=== PATIENT | male | born 1945 | race Caucasian/White ===

== ENCOUNTER 2021-03-16 18:41 | Emergency (ER) | payer OTHER ==
[~2021-03-16] VITALS: Ht 180.3 cm; Wt 92.1 kg
[2021-03-16 19:05] LABS: BASOPHILS ABSOLUTE AUTO 0.03 K/mm3 (0.00-0.23); BASOPHILS PERCENT AUTO 0 % (0-2); EOSINOPHILS ABSOLUTE AUTO 0.08 K/mm3 (0.00-0.68); EOSINOPHILS PERCENT AUTO 1 % (0-6); Hematocrit 34.6 % (37.0-53.0); Hemoglobin 11.6 g/dL (13.5-17.5); IMMATURE GRAN ABSOLUTE AUTO 0.02 K/mm3 (0.00-0.10); IMMATURE GRAN PERCENT AUTO 0 % (0-1); LYMPHOCYTES ABSOLUTE AUTO 2.25 K/mm3 (0.84-5.20); LYMPHOCYTES PERCENT AUTO 30 % (21-46); MONOCYTES ABSOLUTE AUTO 0.63 K/mm3 (0.16-1.47); MONOCYTES PERCENT AUTO 9 % (4-13); Mean Corpuscular HGB 30.9 pg (26.0-34.0); Mean Corpuscular HGB Conc 33.5 g/dL (31.5-36.5); Mean Corpuscular Volume 92 fL (80-100); Mean Platelet Volume 9.2 fL (9.1-12.4); NEUTROPHILS ABSOLUTE AUTO 4.39 K/mm3 (1.96-9.15); NEUTROPHILS PERCENT AUTO 59 % (41-73); Platelet Count 297 K/mm3 (150-400); RDW Coefficient Variation 12.2 % (11.7-14.2); RDW Standard Deviation 41.2 fL (35.1-46.3); Red Blood Cell Count 3.75 M/mm3 (4.30-5.90)
[2021-03-16] MEDS ORDERED: ALOGLIPTIN6.25 M1 PO (19:06)
[2021-03-16] MEDS ORDERED: THERA-D2000 UNIT PO (19:06)
[2021-03-16] MEDS ORDERED: Aspir 8181 MG PO (19:06)
[2021-03-16] MEDS ORDERED: CYAN1000I IM (19:06)
[2021-03-16] MEDS ORDERED: ZOCOR20 MG PO (19:07)
[2021-03-16] MEDS ORDERED: LORA10ER PO (19:07)
[2021-03-16] MEDS ORDERED: METF500C PO (19:07)
[2021-03-16] MEDS ORDERED: VENL25 PO (19:07)
[2021-03-16] MEDS ORDERED: FINA5 PO (19:07)
[2021-03-16] MEDS ORDERED: GLIP5ER PO (19:07)
[2021-03-16 19:22] LABS: Alanine Aminotransfer (ALT/SGP 29 U/L (12-78); Albumin, Blood 3.2 g/dL (3.4-5.0); Albumin/Globulin Ratio 0.9 (0.8-1.8); Alk Phos 53 U/L (50-136); Anion Gap 8 mmol/L (6-16); Aspartate Aminotrans (AST/SGOT 14 U/L (12-37); Bilirubin, Total 0.7 mg/dL (0.1-1.0); Blood Urea Nitrogen 13 mg/dL (8-24); Bun/Creatinine Ratio 17.4 (12.0-20.0); CO2, Blood 22 mmol/L (21-32); Calcium, Blood 9.1 mg/dL (8.5-10.1); Chloride, Blood 101 mmol/L (98-108); Creatinine, Blood 0.75 mg/dL (0.60-1.20); Globulin, Blood 3.6 g/dL (2.2-4.0); Glomerular Filtration Rate >60 (60-); Glucose, Blood 375 mg/dL (70-99); Sodium, Blood 131 mmol/L (136-145); Total Protein, Blood 6.8 g/dL (6.4-8.2)
== END 2021-03-16 21:06 | disposition home or self-care (01) ==
LOC: ER 18:41
PROVIDERS: Emergency Medicine
DX: E86.0 Dehydration (principal); E11.65 Type 2 diabetes mellitus with hyperglycemia; E78.5 Hyperlipidemia, unspecified; Z79.82 Long term (current) use of aspirin; Z79.899 Other long term (current) drug therapy; Z88.0 Allergy status to penicillin; Z79.84 Long term (current) use of oral hypoglycemic drugs
CPT/HCPCS: 80053; 82947; 84484; 85025; 93005; 93010; 99284-25; J7030

== ENCOUNTER 2023-10-07 20:48 | Emergency (ER) | payer OTHER ==
[~2023-10-07] VITALS: Ht 180.3 cm; Wt 108.9 kg
[~2023-10-07 20:48] MED LIST: ALOGLIPTIN6.25 M1 PO; Aspir 8181 MG PO; CYAN1000I IM; FINA5 PO; GLIP5ER PO; LORA10ER PO; METF500C PO; THERA-D2000 UNIT PO; VENL25 PO; ZOCOR20 MG PO
[2023-10-07 22:19] LABS: BASOPHILS ABSOLUTE AUTO 0.04 K/mm3 (0.00-0.23); BASOPHILS PERCENT AUTO 1 % (0-2); EOSINOPHILS ABSOLUTE AUTO 0.08 K/mm3 (0.00-0.68); EOSINOPHILS PERCENT AUTO 1 % (0-6); Hematocrit 34.9 % (37.0-53.0); Hemoglobin 11.7 g/dL (13.5-17.5); IMMATURE GRAN ABSOLUTE AUTO 0.03 K/mm3 (0.00-0.10); IMMATURE GRAN PERCENT AUTO 0 % (0-1); LYMPHOCYTES ABSOLUTE AUTO 1.95 K/mm3 (0.84-5.20); LYMPHOCYTES PERCENT AUTO 24 % (21-46); MONOCYTES ABSOLUTE AUTO 0.63 K/mm3 (0.16-1.47); MONOCYTES PERCENT AUTO 8 % (4-13); Mean Corpuscular HGB 28.7 pg (26.0-34.0); Mean Corpuscular HGB Conc 33.5 g/dL (31.5-36.5); Mean Corpuscular Volume 86 fL (80-100); NEUTROPHILS ABSOLUTE AUTO 5.49 K/mm3 (1.96-9.15); NEUTROPHILS PERCENT AUTO 67 % (41-73); RDW Coefficient Variation 13.7 % (11.7-14.2); RDW Standard Deviation 42.5 fL (35.1-46.3); Red Blood Cell Count 4.08 M/mm3 (4.30-5.90); White Blood Cell Count 8.22 K/mm3 (4.00-11.30)
[2023-10-07 22:23] LABS: Mean Platelet Volume 9.7 fL (9.1-12.4); Platelet Count 251 K/mm3 (150-400)
[2023-10-07 22:28] LABS: Albumin, Blood 2.9 g/dL (3.4-5.0); Albumin/Globulin Ratio 0.8 (0.8-1.8); Bilirubin, Total 0.7 mg/dL (0.1-1.0); Bun/Creatinine Ratio 15.7 (12.0-20.0); Calcium, Blood 8.7 mg/dL (8.5-10.1); Creatinine, Blood 0.7 mg/dL (0.60-1.20); Globulin, Blood 3.7 g/dL (2.2-4.0); Potassium, Blood 4.3 mmol/L (3.5-5.5); Total Protein, Blood 6.6 g/dL (6.4-8.2)
[2023-10-07 23:03] LABS: Source, Urine Clean Catch
[2023-10-07 23:06] LABS: Bilirubin, Urine Neg (Neg); Blood, Urine 3+ (Neg); Glucose Qualitative, Urine 4+ (Neg); Ketones, Urine 2+ (Neg); Leukocyte Esterase, Urine 3+ (Neg); Nitrite, Urine Neg (Neg); Protein, Urine Neg (Neg); Specific Gravity, Urine 1.015 (1.003-1.022); Urobilinogen, Urine NORM (Normal)
[2023-10-07 23:14] LABS: Appearance, Urine Hazy (Clear); Color, Urine Yellow (P-Yellow)
[2023-10-07 23:25] LABS: Amorphous Light (0-Heavy); Bacteria Mod /hpf; Squamous Epithelial Cells Not Seen /hpf (Few); White Blood Cells, Urine TNTC /hpf (0-5); Yeast/Fungi Urine Mod /hpf
[2023-10-08] MEDS ORDERED: CEPH500 PO (01:55)
[2023-10-08 06:00] VITALS: BP 118/78
== END 2023-10-08 06:13 | disposition home or self-care (01) ==
LOC: ER 20:48
PROVIDERS: Emergency Medicine
DX: N30.01 Acute cystitis with hematuria (principal); M25.561 Pain in right knee; E78.5 Hyperlipidemia, unspecified; F32.A Depression, unspecified; E11.9 Type 2 diabetes mellitus without complications; Z57.4 Occupational exposure to toxic agents in agriculture; Z88.0 Allergy status to penicillin; Z79.899 Other long term (current) drug therapy; Z79.82 Long term (current) use of aspirin; Z79.84 Long term (current) use of oral hypoglycemic drugs
CPT/HCPCS: 70450; 73562-RT; 80053; 81001; 85025; 93005; 93010; 96361; 96365; 99285-25; J0696; J7120

== ENCOUNTER 2024-03-29 17:13 | Inpatient (IN) | payer OTHER ==
[~2024-03-29] VITALS: Ht 182.9 cm; Wt 63.0 kg
[~2024-03-29 17:13] MED LIST changes: +CEPH500 PO
[2024-03-29] MEDS ORDERED: Lactated Ringer's 1,000 ML IV ONE (18:00)
[2024-03-29 18:15] LABS: Source, Urine Foley catheter
[2024-03-29 18:21] LABS: Appearance, Urine Cloudy (Clear); BASOPHILS ABSOLUTE AUTO 0.03 K/mm3 (0.00-0.23); BASOPHILS PERCENT AUTO 0 % (0-2); Bilirubin, Urine Neg (Neg); Blood, Urine 3+ (Neg); Color, Urine Yellow (P-Yellow); EOSINOPHILS ABSOLUTE AUTO 0.04 K/mm3 (0.00-0.68); EOSINOPHILS PERCENT AUTO 0 % (0-6); Glucose Qualitative, Urine 4+ (Neg); Hematocrit 33.1 % (37.0-53.0); Hemoglobin 11.1 g/dL (13.5-17.5); IMMATURE GRAN ABSOLUTE AUTO 0.02 K/mm3 (0.00-0.10); IMMATURE GRAN PERCENT AUTO 0 % (0-1); Ketones, Urine 2+ (Neg); LYMPHOCYTES ABSOLUTE AUTO 1.33 K/mm3 (0.84-5.20); LYMPHOCYTES PERCENT AUTO 14 % (21-46); Leukocyte Esterase, Urine 3+ (Neg); MONOCYTES ABSOLUTE AUTO 0.74 K/mm3 (0.16-1.47); MONOCYTES PERCENT AUTO 8 % (4-13); Mean Corpuscular HGB 29.4 pg (26.0-34.0); Mean Corpuscular HGB Conc 33.5 g/dL (31.5-36.5); Mean Corpuscular Volume 88 fL (80-100); Mean Platelet Volume 9.6 fL (9.1-12.4); NEUTROPHILS ABSOLUTE AUTO 7.44 K/mm3 (1.96-9.15); NEUTROPHILS PERCENT AUTO 78 % (41-73); Nitrite, Urine Neg (Neg); Platelet Count 336 K/mm3 (150-400); Protein, Urine 2+ (Neg); RDW Coefficient Variation 13.3 % (11.7-14.2); RDW Standard Deviation 42.9 fL (35.1-46.3); Red Blood Cell Count 3.77 M/mm3 (4.30-5.90); Urobilinogen, Urine NORM (Normal)
[2024-03-29 18:29] LABS: Bacteria Many /hpf; Mucus Light (0-Heavy); Red Blood Cells, Urine 0-2 /hpf (0-2); Renal Epithelial Rare /hpf (0-Rare); Squamous Epithelial Cells Rare /hpf (Few); Transitional Epithelial Cells Few /hpf (0-Rare); White Blood Cells, Urine TNTC /hpf (0-5)
[2024-03-29 19:06] LABS: Albumin, Blood 2.3 g/dL (3.4-5.0); Albumin/Globulin Ratio 0.5 (0.8-1.8); Bilirubin, Total 0.5 mg/dL (0.1-1.0); Bun/Creatinine Ratio 22.1 (12.0-20.0); Calcium, Blood 8.7 mg/dL (8.5-10.1); Creatinine, Blood 0.77 mg/dL (0.60-1.20); Globulin, Blood 4.2 g/dL (2.2-4.0); Potassium, Blood 3.7 mmol/L (3.5-5.5); Thyroid Stimulating Hormone 0.824 uIU/mL (0.360-4.800); Total Protein, Blood 6.5 g/dL (6.4-8.2)
[2024-03-29] MEDS ORDERED: Acetaminophen 325 MG TABLET PO PRN (20:35)
[2024-03-29] MEDS ORDERED: Ondansetron HCl 2 MG / ML 2ML Vial IV PRN (20:35)
[2024-03-29] MEDS ORDERED: NS 1,000 ML IV SCH (20:35)
[2024-03-29] MEDS ORDERED: Venlafaxine HCl 25 MG Tab PO SCH (21:00)
[2024-03-29] MEDS ORDERED: CefTRIAXone Sodium 1,000 MG in NS 100 ML IV SCH (21:00)
[2024-03-29] MEDS ORDERED: Atorvastatin 10 MG Tab PO SCH (21:00)
[2024-03-29] MEDS ORDERED: Lactobacil 2-S.Thermo-Bifido 1 1 Cap PO SCH (21:00)
[2024-03-29 22:30] VITALS: BP 123/64
[2024-03-30 02:33] VITALS: BP 109/58
--- NOTE | 2024-03-30 05:58 | NUR ---
SHIFT SUMMARY: PATIENT FULLY ORIENTED, TIRED, SLOW IN SPEECH. TOO WEAK TO GET OUT OF BED. VILLANUEVA CATHETER IN PLACE FOR HYPOSPADIAS AND UTI. WILL CALL FOR NURSE WITH VOICE INSTEAD OF USING CALL WEBB, PATIENT EDUCATED.
[2024-03-30 06:35] LABS: BASOPHILS ABSOLUTE AUTO 0.02 K/mm3 (0.00-0.23); BASOPHILS PERCENT AUTO 0 % (0-2); EOSINOPHILS ABSOLUTE AUTO 0.04 K/mm3 (0.00-0.68); EOSINOPHILS PERCENT AUTO 1 % (0-6); Hematocrit 32.7 % (37.0-53.0); Hemoglobin 10.5 g/dL (13.5-17.5); IMMATURE GRAN ABSOLUTE AUTO 0.02 K/mm3 (0.00-0.10); IMMATURE GRAN PERCENT AUTO 0 % (0-1); LYMPHOCYTES ABSOLUTE AUTO 1.17 K/mm3 (0.84-5.20); LYMPHOCYTES PERCENT AUTO 13 % (21-46); MONOCYTES ABSOLUTE AUTO 0.64 K/mm3 (0.16-1.47); MONOCYTES PERCENT AUTO 7 % (4-13); Mean Corpuscular HGB 28.5 pg (26.0-34.0); Mean Corpuscular HGB Conc 32.1 g/dL (31.5-36.5); Mean Corpuscular Volume 89 fL (80-100); Mean Platelet Volume 9.4 fL (9.1-12.4); NEUTROPHILS PERCENT AUTO 79 % (41-73); Platelet Count 292 K/mm3 (150-400); RDW Coefficient Variation 13.2 % (11.7-14.2); RDW Standard Deviation 43.1 fL (35.1-46.3); Red Blood Cell Count 3.68 M/mm3 (4.30-5.90); White Blood Cell Count 8.79 K/mm3 (4.00-11.30)
[2024-03-30 07:20] VITALS: BP 108/56
[2024-03-30 07:29] LABS: Bun/Creatinine Ratio 18.3 (12.0-20.0); Calcium, Blood 8.2 mg/dL (8.5-10.1); Creatinine, Blood 0.6 mg/dL (0.60-1.20); Potassium, Blood 3.8 mmol/L (3.5-5.5)
[2024-03-30] MEDS ORDERED: Insulin Human Lispro 100 Units/ML 3ML Syringe SC SCH ×2 (07:30→12:30)
[2024-03-30 07:31] LABS: Magnesium, Blood 1.1 mg/dL (1.6-2.4)
--- NOTE | 2024-03-30 07:46 | NUR ---
CRITICAL LAB VALUE NOTE: RECEIVED A CALL FROM [employer], NOTIFIED THIS RN THAT PATIENT HAS CRITICAL LAB VALUE MAGNISIUM 1.1. TISSUE RECOVERY TECHNICIAN SABAS IS AWARE, NOTIFIED DR. PATRICE smith THIS ISSUE. NO NEW ORDER RECEIVED AT THIS TIME.
[2024-03-30] MEDS ORDERED: NS 1,000 ML IV SCH (07:55)
[2024-03-30] MEDS ORDERED: Magnesium Sulf 2 GM/Water 50ML 50 ML IV STA (08:31)
[2024-03-30] MEDS ORDERED: Aspirin 81 MG TabEC PO SCH (09:00)
[2024-03-30] MEDS ORDERED: Enoxaparin 40 MG/0.4 ML SYR SC SCH (09:00)
[2024-03-30] MEDS ORDERED: Loratadine 10 MG Tab PO SCH (09:00)
[2024-03-30] MEDS ORDERED: Finasteride 5 MG Tab PO SCH (09:00)
[2024-03-30 09:59] VITALS: BP 103/50
--- NOTE | 2024-03-30 12:18 | NUR ---
NOTE: PATIENT BS 375 BEFORE LUNCH, CURRENTLY ON LOW SLIDING SCALE COVERAGE. NOTIFIED DR. IBRAHIM REGARDING THIS CONCERNED. RECEIVED ORDER TO CHANGED SLIDING SCALE COVERAGE TO MEDIUM.
[2024-03-30 15:09] VITALS: BP 99/61
--- NOTE | 2024-03-30 16:44 | NUR ---
SHIFT SUMMARY: PATIENT A/OX3, PLEASANT AND COOPERATIVE c CARE. PATIENT DENIES CP/PRESSURE, AND SOB. BP SOFT, BUT STABLE. PATIENT REPORTS DIZZINESS WHEN PT ASSISTING HIM TO SIT UP ON THE EOB THIS AM. PATIENT REQUESTED TO LAY BACK DOWN IN BED. PT RECOMMENDING SNF. PATIENT MAGNESIUM THIS AM 1.1, RECEIVED OT DOSE IV MAG SULFATE. PATIENT HAS GOOD APPETITE, CHRONIC VILLANUEVA, PATENT DRAINING YELLOW URINE TO GRAVITY. PATIENT CONTINENT OF BOWEL, USES BEDPAN c 1 ASSIST TO ROLL AND HAD LARGE, SOFT BROWN BM THIS SHIFT. PATIENT HAS PIV TO LAC, SL AND R FOREARM INFUSING NS AT 125 MLS/HR. BED ALARM ON FOR SAFETY. CALL LIGHT IN REACH.
--- NOTE | 2024-03-30 18:14 | NUR ---
ADDITIONAL SHIFT NOTE: PATIENT REPORTS PAIN 6/10 TO SACRUM, MEDICATED c EMAR PAIN MEDS AND REPOSITIONING c MOD EFFECT. PATIENT BS RANGES [phone], MEDICATED c INSULIN PER EMAR SS COVERAGE. PATIENT SITTING UPRIGHT IN BED HAVING DINNER AT THIS TIME c CALL LIGHT IN REACH. BED ALARM ON FOR SAFETY.
[2024-03-30 19:30] VITALS: BP 100/60
[2024-03-31 04:50] VITALS: BP 106/62
[2024-03-31 05:14] LABS: BASOPHILS ABSOLUTE AUTO 0.02 K/mm3 (0.00-0.23); BASOPHILS PERCENT AUTO 0 % (0-2); EOSINOPHILS ABSOLUTE AUTO 0.06 K/mm3 (0.00-0.68); EOSINOPHILS PERCENT AUTO 1 % (0-6); Hematocrit 32.9 % (37.0-53.0); Hemoglobin 10.7 g/dL (13.5-17.5); IMMATURE GRAN ABSOLUTE AUTO 0.04 K/mm3 (0.00-0.10); IMMATURE GRAN PERCENT AUTO 1 % (0-1); LYMPHOCYTES ABSOLUTE AUTO 1.29 K/mm3 (0.84-5.20); LYMPHOCYTES PERCENT AUTO 17 % (21-46); MONOCYTES ABSOLUTE AUTO 0.56 K/mm3 (0.16-1.47); MONOCYTES PERCENT AUTO 7 % (4-13); Mean Corpuscular HGB 28.9 pg (26.0-34.0); Mean Corpuscular HGB Conc 32.5 g/dL (31.5-36.5); Mean Corpuscular Volume 89 fL (80-100); Mean Platelet Volume 9.6 fL (9.1-12.4); NEUTROPHILS ABSOLUTE AUTO 5.78 K/mm3 (1.96-9.15); NEUTROPHILS PERCENT AUTO 75 % (41-73); Platelet Count 278 K/mm3 (150-400); RDW Coefficient Variation 13.2 % (11.7-14.2); RDW Standard Deviation 43.1 fL (35.1-46.3); White Blood Cell Count 7.75 K/mm3 (4.00-11.30)
[2024-03-31 05:45] LABS: Albumin, Blood 1.8 g/dL (3.4-5.0); Anion Gap 10 mmol/L (3-11); Blood Urea Nitrogen 11 mg/dL (8-24); Bun/Creatinine Ratio 18.1 (12.0-20.0); CO2, Blood 26 mmol/L (21-32); Calcium, Blood 8.1 mg/dL (8.5-10.1); Chloride, Blood 103 mmol/L (98-108); Creatinine, Blood 0.61 mg/dL (0.60-1.20); Glomerular Filtration Rate 99 (60-); Glucose, Blood 347 mg/dL (70-99); Magnesium, Blood 1.6 mg/dL (1.6-2.4); Phosphorus, Blood 2.6 mg/dL (2.5-4.9); Potassium, Blood 3.8 mmol/L (3.5-5.5); Sodium, Blood 135 mmol/L (136-145)
--- NOTE | 2024-03-31 06:16 | NUR ---
SHIFT SUMMARY: PATIENT FULLY ORIENTED, COOPERATIVE. COMPLAINTS OF NOT BEING ABLE TO SLEEP AT NIGHT. FLUIDS RUNNING AT 125 ML/HR, VILLANUEVA OUTPUT WDL AND YELLOW.
[2024-03-31 07:26] VITALS: BP 128/77
[2024-03-31] MEDS ORDERED: Insulin Glargine-Yfgn 100 Unit/mL 3 ML SYR SC ONE (09:00)
[2024-03-31] MEDS ORDERED: TraMADol HCl 50 MG Tab PO PRN (11:40)
[2024-03-31 15:49] VITALS: BP 107/66
--- NOTE | 2024-03-31 17:04 | NUR ---
SHIFT SUMMARY: PATIENT A/OX3, FORGETFUL AT TIMES, PLEASANT AND COOPERATIVE c CARE. PATIENT CONTINUES TO REPORTS PAIN 6-7/10 TO "BUTT", MEDICATED c PO TYLENOL X1 c SLIGHT EFFECT. MEDICATED c PO TRAMADOL X1, REPORTS PAIN DOWN TO 1/10. PATIENT HAD BEDBATH AND LINEN CHANGED TODAY, CATH CARE AND ATTENDS CHANGED. PATIENT RESTING IN BED ON/OFF, REPOSITIONED T/O SHIFT, SCD'S IN PLACED TO BLE'S. PATIENT DENIES CP/PRESSURE, SOB, DIZZINESS AND N/V. PATIENT BS BEFORE MEALS RANGES [phone], MEDICATED c INSULIN PER EMAR SS COVERAGE AND MEDICATED c OT DOSE OF LONG ACTING INSULIN PER ORDER. PATIENT HAS EXCELLENT APPITITE, CHRONIC VILLANUEVA PATENT DRAINING CLEAR YELLOW URINE TO GRAVITY. VITAL SIGNS REVIEWED. BED ALARM ON FOR SAFETY. CALL LIGHT IN REACH.
[2024-03-31 21:06] VITALS: BP 112/73
--- NOTE | 2024-04-01 05:19 | NUR ---
SHIFT SUMMARY PT A&O X3 AND ANSWERS QUESTIONS APPROPRIATELY. PT RECEIVED HS MEDICATIONS AND IV ANTIBIOTICS. PT STATES HE HAS AN APPOINTMENT T[place] (04/01/24) AT [facility] AND WAS ANXIOUS REGARDING BEING ABLE TO GET TO APPOINTMENT. PT UNABLE TO VERIFY TIME OF APPOINTMENT, WILL PASS ALONG TO DAY SHIFT TO FOLLOW UP REGARDING INFORMATION ON PT MEDICAL APPOINTMENT. VSS, NO COMPLAINTS OF CP/PRESSURE OR SOB. NO ACUTE EVENTS AT THIS TIME. PT SPENT MOST OF SHIFT IN BED WITH EYES CLOSED AND RESPIRATIONS EVEN AND UNLABORED.
[2024-04-01 05:39] VITALS: BP 116/73
[2024-04-01 05:46] LABS: BASOPHILS ABSOLUTE AUTO 0.04 K/mm3 (0.00-0.23); BASOPHILS PERCENT AUTO 1 % (0-2); EOSINOPHILS ABSOLUTE AUTO 0.09 K/mm3 (0.00-0.68); EOSINOPHILS PERCENT AUTO 1 % (0-6); Hematocrit 34.5 % (37.0-53.0); Hemoglobin 11.4 g/dL (13.5-17.5); IMMATURE GRAN ABSOLUTE AUTO 0.03 K/mm3 (0.00-0.10); IMMATURE GRAN PERCENT AUTO 0 % (0-1); LYMPHOCYTES ABSOLUTE AUTO 1.33 K/mm3 (0.84-5.20); LYMPHOCYTES PERCENT AUTO 18 % (21-46); MONOCYTES ABSOLUTE AUTO 0.53 K/mm3 (0.16-1.47); MONOCYTES PERCENT AUTO 7 % (4-13); Mean Corpuscular HGB 29.4 pg (26.0-34.0); Mean Corpuscular Volume 89 fL (80-100); Mean Platelet Volume 9.1 fL (9.1-12.4); NEUTROPHILS ABSOLUTE AUTO 5.57 K/mm3 (1.96-9.15); NEUTROPHILS PERCENT AUTO 73 % (41-73); Platelet Count 299 K/mm3 (150-400); RDW Coefficient Variation 13.3 % (11.7-14.2); RDW Standard Deviation 43.1 fL (35.1-46.3); Red Blood Cell Count 3.88 M/mm3 (4.30-5.90); White Blood Cell Count 7.59 K/mm3 (4.00-11.30)
[2024-04-01 06:02] LABS: Albumin, Blood 1.9 g/dL (3.4-5.0); Anion Gap 9 mmol/L (3-11); Blood Urea Nitrogen 10 mg/dL (8-24); Bun/Creatinine Ratio 16.4 (12.0-20.0); CO2, Blood 29 mmol/L (21-32); Calcium, Blood 8.4 mg/dL (8.5-10.1); Chloride, Blood 102 mmol/L (98-108); Creatinine, Blood 0.61 mg/dL (0.60-1.20); Glomerular Filtration Rate 99 (60-); Glucose, Blood 296 mg/dL (70-99); Magnesium, Blood 1.5 mg/dL (1.6-2.4); Phosphorus, Blood 2.6 mg/dL (2.5-4.9); Sodium, Blood 136 mmol/L (136-145)
[2024-04-01 07:21] VITALS: BP 128/71
--- NOTE | 2024-04-01 07:29 | NUR ---
PUBLIC HEALTH ANALYST NOTIFIED THIS RN THAT PATIENT WAS PULLING AT IV DRESSING. CHANGED DRESSING AND PLACED NETTING OVER AND REMINDED NOT TO REMOVE DRESSINGS.
[2024-04-01] MEDS ORDERED: Mag Sulfate 1 GM/D5% 100ML 100 ML IV STA (07:46)
[2024-04-01] MEDS ORDERED: Insulin Glargine-Yfgn 100 Unit/mL 3 ML SYR SC SCH (08:00)
[2024-04-01 15:08] LABS: IMMATURE RETIC FRACTION 15.4 % (2.3-16.0); RETIC HGB EQUIVALENT 30.6 pg (28.20-36.60); RETICULOCYTE ABSOLUTE 0.0414 M/mm3 (0.0200-0.1100); RETICULOCYTE COUNT PERCENT 1.02 % (0.50-2.50)
[2024-04-01 15:35] LABS: Percent Saturation 13.8 % (20.0-50.0)
[2024-04-01 17:07] VITALS: BP 124/76
--- NOTE | 2024-04-01 18:24 | NUR ---
DAY SHIFT SUMMARY: A&Ox2-3. PLEASANT AND COOPERATIVE WITH MOST CARE. DECLINED TO WORK WITH PT/OT TODAY, STATING HE HAD "WALKED A BUNCH LAST NIGHT". ATTEMPTED TO GET UP OUT OF BED IN ORDER TO GO TO THE BATHROOM, THOUGH HE IS UNABLE TO WALK; FORGETFUL AND IMPULSIVE. IV x2 PATENT ADN FLUSHED. PILLS WHOLE WITH FLUIDS. VSS. NO ACUTE CONCERNS T/O THE DAY. BM TODAY. REPORT TO ONCOMING RN.
[2024-04-01 20:31] VITALS: BP 112/67
--- NOTE | 2024-04-02 04:00 | NUR ---
SHIFT SUMMARY PT PLEASANT AND COOPERATIVE WITH CARE. PT WATCHING TV LATE INTO THE EVENING. PT COMPLAINED THAT BOTH OF HIS IV'S HURT AND IT WAS FOUND THAT ONE OF THEM WAS LEAKING. 2 IV'S REMOVED AND REPLACED WITH 1. IV WORKING WELL AT THIS TIME. PT HAS CALL LIGHT WITHIN HIS REACH AND AN UNDERSTANDING OF HOW TO USE IT. CATH CARE COMPLETED THIS SHIFT. WILL CONTINUE TO MONITOR.
[2024-04-02 05:42] VITALS: BP 107/62
[2024-04-02 07:10] VITALS: BP 111/58
[2024-04-02] MEDS ORDERED: Insulin Glargine-Yfgn 100 Unit/mL 3 ML SYR SC SCH (09:00)
[2024-04-02 10:17] LABS: BASOPHILS ABSOLUTE AUTO 0.03 K/mm3 (0.00-0.23); BASOPHILS PERCENT AUTO 0 % (0-2); EOSINOPHILS ABSOLUTE AUTO 0.06 K/mm3 (0.00-0.68); EOSINOPHILS PERCENT AUTO 1 % (0-6); Hematocrit 37.8 % (37.0-53.0); Hemoglobin 12.3 g/dL (13.5-17.5); IMMATURE GRAN ABSOLUTE AUTO 0.03 K/mm3 (0.00-0.10); IMMATURE GRAN PERCENT AUTO 0 % (0-1); LYMPHOCYTES ABSOLUTE AUTO 1.17 K/mm3 (0.84-5.20); LYMPHOCYTES PERCENT AUTO 14 % (21-46); MONOCYTES ABSOLUTE AUTO 0.51 K/mm3 (0.16-1.47); MONOCYTES PERCENT AUTO 6 % (4-13); Mean Corpuscular HGB 29.1 pg (26.0-34.0); Mean Corpuscular HGB Conc 32.5 g/dL (31.5-36.5); Mean Corpuscular Volume 89 fL (80-100); NEUTROPHILS ABSOLUTE AUTO 6.52 K/mm3 (1.96-9.15); NEUTROPHILS PERCENT AUTO 78 % (41-73); Platelet Count 317 K/mm3 (150-400); RDW Coefficient Variation 13.2 % (11.7-14.2); RDW Standard Deviation 43.1 fL (35.1-46.3); Red Blood Cell Count 4.23 M/mm3 (4.30-5.90); White Blood Cell Count 8.32 K/mm3 (4.00-11.30)
--- NOTE | 2024-04-02 11:03 | NUR ---
CALL FROM PETER IN LAB WITH CRITICAL MAG LEVEL OF 1.1. PROVIDER NOTIFIED.
[2024-04-02 11:04] LABS: Bun/Creatinine Ratio 18.3 (12.0-20.0); Calcium, Blood 8.7 mg/dL (8.5-10.1); Creatinine, Blood 0.66 mg/dL (0.60-1.20); Magnesium, Blood 1.1 mg/dL (1.6-2.4)
[2024-04-02] MEDS ORDERED: Magnesium Sulf 2 GM/Water 50ML 50 ML IV ONE (11:10)
[2024-04-02 15:33] VITALS: BP 109/60
[2024-04-02 15:48] LABS: Magnesium, Blood 2.1 mg/dL (1.6-2.4)
[2024-04-02 16:33] LABS: CK TOTAL 37 U/L (39-308); CK-BB 0 % (0-0); CK-MACRO TYPE I 0 % (0-0); CK-MACRO TYPE II 0 % (0-0); CK-MB 0 % (0-4); CK-MM 100 % (96-100)
--- NOTE | 2024-04-02 18:09 | NUR ---
DAY SHIFT SUMMARY: A&Ox3-4 TO SELF, PERSON, PLACE AND SOMETIMES SITUATION. REPEATING, "I DON'T KNOW WHAT'S GOING ON HERE" AND "I DON'T KNOW WHAT TO DO." OVERESTIMATES ABILITY AND SUCH, PULLED CATHETER OUT SOME TODAY, CAUSING PENILE DISCOMFORT AT INSERTION SITE. RESOLVED WITH TIME AND REPOSITIONING. BLOOD SUGARS CONTINUE TO CLIMB DESPITE INCREASE IN AM GLARGINE. UP AND AMBULATING IN ROOM WITH 1PA c FWW TODAY. VILLANUEVA PATENT AND DRAINING TO GRAVITY. BOWEL MOVEMENT. ABLE TO TAKE MEDS WHOLE WITH FLUIDS. BED IN LOWEST POSITION. CALL LIGHT WITHIN REACH. ALL NEEDS MET. REPORT TO ONCOMING RN.
[2024-04-02 20:23] VITALS: BP 96/45
[2024-04-02] MEDS ORDERED: NS 250 ML IV PRN (21:35)
[2024-04-03 02:55] VITALS: BP 113/63
[2024-04-03 06:02] LABS: BASOPHILS ABSOLUTE AUTO 0.03 K/mm3 (0.00-0.23); BASOPHILS PERCENT AUTO 0 % (0-2); EOSINOPHILS PERCENT AUTO 1 % (0-6); Hematocrit 38.6 % (37.0-53.0); Hemoglobin 12.2 g/dL (13.5-17.5); IMMATURE GRAN ABSOLUTE AUTO 0.07 K/mm3 (0.00-0.10); IMMATURE GRAN PERCENT AUTO 1 % (0-1); LYMPHOCYTES ABSOLUTE AUTO 1.67 K/mm3 (0.84-5.20); LYMPHOCYTES PERCENT AUTO 23 % (21-46); MONOCYTES ABSOLUTE AUTO 0.64 K/mm3 (0.16-1.47); MONOCYTES PERCENT AUTO 9 % (4-13); Mean Corpuscular HGB 28.2 pg (26.0-34.0); Mean Corpuscular HGB Conc 31.6 g/dL (31.5-36.5); Mean Corpuscular Volume 89 fL (80-100); Mean Platelet Volume 8.9 fL (9.1-12.4); NEUTROPHILS ABSOLUTE AUTO 4.84 K/mm3 (1.96-9.15); NEUTROPHILS PERCENT AUTO 66 % (41-73); Platelet Count 335 K/mm3 (150-400); RDW Coefficient Variation 13.2 % (11.7-14.2); RDW Standard Deviation 43.7 fL (35.1-46.3); Red Blood Cell Count 4.33 M/mm3 (4.30-5.90); White Blood Cell Count 7.35 K/mm3 (4.00-11.30)
[2024-04-03 06:24] LABS: Bun/Creatinine Ratio 23.9 (12.0-20.0); Calcium, Blood 8.6 mg/dL (8.5-10.1); Creatinine, Blood 0.59 mg/dL (0.60-1.20); Magnesium, Blood 1.7 mg/dL (1.6-2.4); Potassium, Blood 4.2 mmol/L (3.5-5.5)
[2024-04-03 07:07] VITALS: BP 111/61
[2024-04-03 15:23] VITALS: BP 108/61
[2024-04-03 19:41] VITALS: BP 110/58
--- NOTE | 2024-04-03 20:56 | NUR ---
DAY SHIFT SUMMARY: A&Ox4. PLEASANT AND COOPERATIVE WITH CARE AND IS ABLE TO ADVOCATE NEEDS EFFECTIVELY. BED ALARM SET PATIENT DOES NOT USE CALL LIGHT AND IS IMPULSIVE. VILLANUEVA PATENT AND DRAINING TO GRAVITY. NO IRRITATION NOTED AT SITE OF INSERTION TODAY. WORKED WITH PT. ANTICIPATE PLACEMENT TO SNF IN [place] TO FOLLOW UROLOGY FOR RECENT FINDING OF BLADDER LESIONS. AMBULATES 1PA c FWW. MEDS WHOLE WITH FLUIDS. SALINE LOCKED. BED IN LOWEST POSITION. CALL LIGHT WITHIN REACH. NEEDS MET. REPORT TO ONCOMING RN.
[2024-04-03] MEDS ORDERED: Cefdinir 300 MG Cap PO SCH (21:00)
[2024-04-04 03:26] VITALS: BP 102/59
--- NOTE | 2024-04-04 04:38 | NUR ---
SHIFT SUMMARY PT. IS A&O X3, AT TIMES A BIT CONFUSED, COOP WITH CARE. PT. C/O 06/04 PAIN AROUND THE INDWELLING CATHETER INSERTION SITE. PER SHIFT ASSESSMENT, YEASTY ODOR AND SCANT AMOUNT WHITISH COLOR DISCHARGE NOTED OROUND THE CATHETER INSERTION AREA. PT. WEARS ATTENDS. CATHETER CARE GIVEN DURING THIS SHIFT. MEDICATED ORDERED (TYLENOL AND TRAMADOL) SEE EMAR. NO ACUTE EVENTS/DISTRESS DURING THIS SHIFT. BED AT THE LOWEST POSITION, CALL LIGHT IN REACH. PT. IS ABLE TO MAKE HIS NEEDS KNOWN. WILL HANDOFF TO THE INCOMING SHIFT NURSE.
[2024-04-04 06:59] VITALS: BP 104/64
[2024-04-04] MEDS ORDERED: Insulin Glargine-Yfgn 100 Unit/mL 3 ML SYR SC SCH (09:00)
[2024-04-04 15:31] VITALS: BP 105/63
--- NOTE | 2024-04-04 15:50 | NUR ---
SHIFT SUMMARY PT RESTING QUIETLY AT START OF SHIFT. UP TO CHAIR FOR MEALS. UP TO SHOWER AFTER BREAKFAST. SMALL AMT SKIN BREAKDOWN ON COCCYX; NEW DRSG APPLIED AFTER SHOWER. DR COLEY IN TO SEE PT; NEW ORDERS PLACED. CHRONIC VILLANUEVA TO GRAVITY; PATENT. PT MEDICALLY STABLE, WAITING D/C. PER MATERIALS BRANCH CHIEF, PT ACCEPTED TO [facility] [place]. PT NEEDING TO F/U WITH UROLOGY IN [place] WITH CHRONIC VILLANUEVA. UP WITH 1P SBA USING FWW. PT ABLE TO WALK IN HALLS WITH THERAPY TODAY. RESTING QUIETLY AT THIS TIME. CALL LT IN REACH AND ABLE TO MAKE NEEDS KNOWN.
[2024-04-04 19:51] VITALS: BP 103/57
[2024-04-04] MEDS ORDERED: Miconazole Nitrate 2% 85 GM PWD TOP SCH (21:00)
--- NOTE | 2024-04-05 03:50 | NUR ---
SHIFT SUMMARY PT. IS A&O X4, COOP WITH CARE, PLEASANT. MEDICATED ORDERED PRN PAIN MEDS X1 DURING THIS SHIFT FOR C/O CATH INSERTION SITE 05/04, AND BACK PAIN (SEE EMAR.) VILLANUEVA CATH DRAINING WELL TO GRAVITY, YELLOW COLOR URINE. NO ACUTE EVENTS/DISTRESS NOTED/REPORTED ON THIS SHIFT. BED AT THE LOWEST POSITION, CALL LIGHT IN REACH.
[2024-04-05 04:22] VITALS: BP 107/60
[2024-04-05 07:26] VITALS: BP 111/63
[2024-04-05 08:42] LABS: SARS-Cov-2 (COVID-19) PCR, MMC NEGATIVE (NEGATIVE)
--- NOTE | 2024-04-05 11:42 | NUR ---
PT AWAKE AT START OF SHIFT, WATCHING TV. NO C/O. UP TO CHAIR FOR BREAKFAST. FLUTE GRINDER IN TO SEE PT; TX ARRANGED FOR D/C TO [facility] IN [place]. D/C ORDERS PLACED BY DR COLEY. PT ABLE TO DRESS HIMSELF WITH ASSISTANCE FROM NURSE. PT THEN UP TO CHAIR WHILE WAITING FOR W/C TX. PT ABLE TO TX SELF TO W/C WITH SBA. IH'S WENT WITH PT BELONGINGS. REPORT TO BE CALLED TO [phone].
[2024-04-05] MEDS ORDERED: CEFD300 PO (11:48)
--- NOTE | 2024-04-05 12:39 | NUR ---
1235 REPORT CALLED TO KRIS MILES AT [facility] [phone].
== END 2024-04-05 11:53 | disposition hospice, inpatient (51) | DRG 699 ==
LOC: ER 17:13 → MEDS 17:14 → ENPENDDIS 04-05 11:08 → MEDS 04-05 11:53
PROVIDERS: Emergency Medicine; Family Medicine; Internal Medicine; Nurse Practitioner Acute Care; ADMIT Internal Medicine
PROC: 0T9B70Z Drainage of Bladder with Drainage Device, Via Natural or Artificial Opening (ICD-10-PCS; principal; 2024-03-29)
DX: T83.511A Infection and inflammatory reaction due to indwelling urethral catheter, initial encounter (principal); E87.1 Hypo-osmolality and hyponatremia; Y84.6 Urinary catheterization as the cause of abnormal reaction of the patient, or of later complication, without mention of misadventure at the time of the procedure; I10 Essential (primary) hypertension; F32.A Depression, unspecified; E78.5 Hyperlipidemia, unspecified; Z79.84 Long term (current) use of oral hypoglycemic drugs; B95.4 Other streptococcus as the cause of diseases classified elsewhere; Z79.899 Other long term (current) drug therapy; Z85.51 Personal history of malignant neoplasm of bladder; E11.65 Type 2 diabetes mellitus with hyperglycemia; Z88.0 Allergy status to penicillin; Z79.82 Long term (current) use of aspirin; Z66 Do not resuscitate; N40.0 Benign prostatic hyperplasia without lower urinary tract symptoms; R29.6 Repeated falls; E83.42 Hypomagnesemia; D64.9 Anemia, unspecified
CPT/HCPCS: 36415; 51702; 70450; 71045; 80048; 80053; 80069; 81001; 82550; 82552; 82607; 82728; 82746; 82947; 83540; 83550; 83735; 84100; 84443; 84484; 85025; 85045; 87086; 87147; 96360-59; 96361; 96365; 96372; 96375; 97110; 97116; 97162; 97530; 99285-25; A9270; G0378; J0696; J1650; J1815; J3475; J7030; J7050; J7120; U0002

== ENCOUNTER 2024-07-15 11:07 | Emergency (ER) | payer OTHER ==
[~2024-07-15] VITALS: Ht 182.9 cm; Wt 79.4 kg
[~2024-07-15 11:07] MED LIST changes: +CEFD300 PO
[2024-07-15 11:53] VITALS: BP 118/77
[2024-07-15 12:42] LABS: BASOPHILS ABSOLUTE AUTO 0.04 K/mm3 (0.00-0.23); BASOPHILS PERCENT AUTO 1 % (0-2); EOSINOPHILS ABSOLUTE AUTO 0.14 K/mm3 (0.00-0.68); EOSINOPHILS PERCENT AUTO 2 % (0-6); Hemoglobin 11.9 g/dL (13.5-17.5); IMMATURE GRAN ABSOLUTE AUTO 0.01 K/mm3 (0.00-0.10); IMMATURE GRAN PERCENT AUTO 0 % (0-1); LYMPHOCYTES ABSOLUTE AUTO 1.61 K/mm3 (0.84-5.20); LYMPHOCYTES PERCENT AUTO 20 % (21-46); MONOCYTES ABSOLUTE AUTO 0.58 K/mm3 (0.16-1.47); MONOCYTES PERCENT AUTO 7 % (4-13); Mean Corpuscular HGB 30.1 pg (26.0-34.0); Mean Corpuscular HGB Conc 32.2 g/dL (31.5-36.5); Mean Corpuscular Volume 93 fL (80-100); Mean Platelet Volume 9.3 fL (9.1-12.4); NEUTROPHILS PERCENT AUTO 70 % (41-73); Platelet Count 319 K/mm3 (150-400); RDW Coefficient Variation 14.4 % (11.7-14.2); RDW Standard Deviation 48.6 fL (35.1-46.3); Red Blood Cell Count 3.96 M/mm3 (4.30-5.90); White Blood Cell Count 7.88 K/mm3 (4.00-11.30)
[2024-07-15 12:48] LABS: Albumin, Blood 3.5 g/dL (3.4-5.0); Albumin/Globulin Ratio 0.9 (0.8-1.8); Bilirubin, Total 0.3 mg/dL (0.1-1.0); Bun/Creatinine Ratio 27.4 (12.0-20.0); Calcium, Blood 9.4 mg/dL (8.5-10.1); Creatinine, Blood 0.69 mg/dL (0.60-1.20); Magnesium, Blood 1.3 mg/dL (1.6-2.4); Phosphorus, Blood 3.1 mg/dL (2.5-4.9); Potassium, Blood 4.3 mmol/L (3.5-5.5); Total Protein, Blood 7.5 g/dL (6.4-8.2)
[2024-07-15] MEDS ORDERED: Loperamide HCl 2 MG Cap PO ONE (17:20)
[2024-07-15] MEDS ORDERED: Magnesium Sulf 2 GM/Water 50ML 50 ML IV ONE (17:20)
[2024-07-15] MEDS ORDERED: LOPE2C PO (18:15)
== END 2024-07-15 19:40 | disposition home or self-care (01) ==
LOC: ER 11:07
PROVIDERS: Physician Assistant
DX: R19.7 Diarrhea, unspecified (principal); E83.42 Hypomagnesemia; E11.40 Type 2 diabetes mellitus with diabetic neuropathy, unspecified
CPT/HCPCS: 80053; 83735; 84100; 85025; 96365; 96366; 99284-25; A9270; J3475

== ENCOUNTER 2024-10-11 16:39 | Emergency (ER) | payer OTHER ==
[~2024-10-11] VITALS: Ht 180.3 cm; Wt 90.7 kg
[~2024-10-11 16:39] MED LIST changes: +LOPE2C PO
[2024-10-11 17:45] LABS: BASOPHILS ABSOLUTE AUTO 0.04 K/mm3 (0.00-0.23); BASOPHILS PERCENT AUTO 0 % (0-2); EOSINOPHILS ABSOLUTE AUTO 0.11 K/mm3 (0.00-0.68); EOSINOPHILS PERCENT AUTO 1 % (0-6); Hematocrit 34.2 % (37.0-53.0); Hemoglobin 11.1 g/dL (13.5-17.5); IMMATURE GRAN ABSOLUTE AUTO 0.05 K/mm3 (0.00-0.10); IMMATURE GRAN PERCENT AUTO 0 % (0-1); LYMPHOCYTES ABSOLUTE AUTO 1.54 K/mm3 (0.84-5.20); LYMPHOCYTES PERCENT AUTO 13 % (21-46); MONOCYTES ABSOLUTE AUTO 0.77 K/mm3 (0.16-1.47); MONOCYTES PERCENT AUTO 6 % (4-13); Mean Corpuscular HGB 29.8 pg (26.0-34.0); Mean Corpuscular HGB Conc 32.5 g/dL (31.5-36.5); Mean Corpuscular Volume 92 fL (80-100); Mean Platelet Volume 9.2 fL (9.1-12.4); NEUTROPHILS ABSOLUTE AUTO 9.43 K/mm3 (1.96-9.15); NEUTROPHILS PERCENT AUTO 79 % (41-73); Platelet Count 461 K/mm3 (150-400); RDW Coefficient Variation 13.6 % (11.7-14.2); RDW Standard Deviation 46.1 fL (35.1-46.3); Red Blood Cell Count 3.72 M/mm3 (4.30-5.90); White Blood Cell Count 11.94 K/mm3 (4.00-11.30)
[2024-10-11 17:59] LABS: Albumin, Blood 2.7 g/dL (3.4-5.0); Albumin/Globulin Ratio 0.6 (0.8-1.8); Bilirubin, Total 0.5 mg/dL (0.1-1.0); Bun/Creatinine Ratio 9.5 (12.0-20.0); Calcium, Blood 9.6 mg/dL (8.5-10.1); Creatinine, Blood 0.74 mg/dL (0.60-1.20); Globulin, Blood 4.6 g/dL (2.2-4.0); Magnesium, Blood 1.6 mg/dL (1.6-2.4); Potassium, Blood 4.4 mmol/L (3.5-5.5); Total Protein, Blood 7.3 g/dL (6.4-8.2)
[2024-10-11 18:22] LABS: CORONAVIRUS COVID-19 AG Negative (NEGATIVE); INFLUENZA A AG Negative (NEGATIVE); INFLUENZA B AG Negative (NEGATIVE)
[2024-10-11 19:30] VITALS: BP 129/61
== END 2024-10-11 19:55 | disposition home or self-care (01) ==
LOC: ER 16:39
PROVIDERS: Student in an Organized Health Care Education/Training Program
DX: J06.9 Acute upper respiratory infection, unspecified (principal); E11.9 Type 2 diabetes mellitus without complications; E78.5 Hyperlipidemia, unspecified; Z87.09 Personal history of other diseases of the respiratory system; Z79.82 Long term (current) use of aspirin; Z79.899 Other long term (current) drug therapy; Z88.0 Allergy status to penicillin
CPT/HCPCS: 71045; 80053; 83735; 83880; 84484; 85025; 87428-QW; 93005; 93010; 99284-25

== ENCOUNTER 2024-10-17 19:25 | Inpatient (IN) | payer OTHER ==
[~2024-10-17] VITALS: Ht 180.3 cm; Wt 87.9 kg
[~2024-10-17 19:25] MED LIST changes: +GLIP10 PO; -GLIP5ER PO
[2024-10-17 20:27] LABS: BASOPHILS ABSOLUTE AUTO 0.04 K/mm3 (0.00-0.23); BASOPHILS PERCENT AUTO 0 % (0-2); EOSINOPHILS ABSOLUTE AUTO 0.03 K/mm3 (0.00-0.68); EOSINOPHILS PERCENT AUTO 0 % (0-6); Hematocrit 36.2 % (37.0-53.0); Hemoglobin 11.8 g/dL (13.5-17.5); IMMATURE GRAN ABSOLUTE AUTO 0.07 K/mm3 (0.00-0.10); IMMATURE GRAN PERCENT AUTO 0 % (0-1); LYMPHOCYTES ABSOLUTE AUTO 1.66 K/mm3 (0.84-5.20); LYMPHOCYTES PERCENT AUTO 10 % (21-46); MONOCYTES ABSOLUTE AUTO 1.16 K/mm3 (0.16-1.47); MONOCYTES PERCENT AUTO 7 % (4-13); Mean Corpuscular HGB 29.4 pg (26.0-34.0); Mean Corpuscular HGB Conc 32.6 g/dL (31.5-36.5); Mean Corpuscular Volume 90 fL (80-100); Mean Platelet Volume 8.9 fL (9.1-12.4); NEUTROPHILS ABSOLUTE AUTO 13.39 K/mm3 (1.96-9.15); NEUTROPHILS PERCENT AUTO 82 % (41-73); Platelet Count 599 K/mm3 (150-400); RDW Coefficient Variation 13.5 % (11.7-14.2); Red Blood Cell Count 4.01 M/mm3 (4.30-5.90); White Blood Cell Count 16.35 K/mm3 (4.00-11.30)
[2024-10-17 21:05] LABS: Alanine Aminotransfer (ALT/SGP 14 U/L (12-78); Albumin, Blood 2.6 g/dL (3.4-5.0); Albumin/Globulin Ratio 0.5 (0.8-1.8); Alk Phos 82 U/L (50-136); Anion Gap 19 mmol/L (3-11); Aspartate Aminotrans (AST/SGOT 17 U/L (12-37); Bilirubin, Total 0.7 mg/dL (0.1-1.0); Blood Urea Nitrogen 12 mg/dL (8-24); Bun/Creatinine Ratio 15.4 (12.0-20.0); CO2, Blood 20 mmol/L (21-32); Calcium, Blood 9.4 mg/dL (8.5-10.1); Chloride, Blood 96 mmol/L (98-108); Creatinine, Blood 0.78 mg/dL (0.60-1.20); Globulin, Blood 5.4 g/dL (2.2-4.0); Glomerular Filtration Rate 92 (60-); Glucose, Blood 433 mg/dL (70-99); Potassium, Blood 5.1 mmol/L (3.5-5.5); Sodium, Blood 130 mmol/L (136-145)
[2024-10-17] MEDS ORDERED: NS 1,000 ML IV SCH (23:25)
[2024-10-18 00:48] LABS: Ethanol (Alcohol), Blood, Med <3 mg/dL; Thyroid Stimulating Hormone 0.706 uIU/mL (0.360-4.800); Uric Acid, Blood 0.3 mg/dL (3.5-7.2)
[2024-10-18 01:10] LABS: PCO2 Venous 43.6 mmHg (38-42); pH Blood Venous 7.33 (7.34-7.37)
[2024-10-18 01:11] LABS: Base Excess Venous -2.9 mmol/L; Bicarbonate Venous 21.8 mmol/L (24.0-30.0)
[2024-10-18 01:54] LABS: Source, Urine Straight Cath
[2024-10-18 01:54] LABS: Magnesium, Blood 1.6 mg/dL (1.6-2.4)
[2024-10-18 01:57] LABS: Bilirubin, Urine Neg (Neg); Blood, Urine 1+ (Neg); Glucose Qualitative, Urine 4+ (Neg); Ketones, Urine 4+ (Neg); Leukocyte Esterase, Urine 3+ (Neg); Nitrite, Urine Neg (Neg); Protein, Urine 1+ (Neg); Specific Gravity, Urine 1.015 (1.003-1.022); Urobilinogen, Urine NORM (Normal)
[2024-10-18 02:16] LABS: Phosphorus, Blood 3.1 mg/dL (2.5-4.9)
[2024-10-18 02:17] LABS: Appearance, Urine Hazy (Clear); Color, Urine Yellow (P-Yellow)
[2024-10-18 02:19] LABS: Bacteria Mod /hpf; Squamous Epithelial Cells Few /hpf (Few); White Blood Cells, Urine 50-100 /hpf (0-5)
[2024-10-18] MEDS ORDERED: CefTRIAXone Sodium 1,000 MG in NS 50 ML IV ONE (02:40)
[2024-10-18] MEDS ORDERED: FLU VACC TS2024-25(6MOS UP)/PF 45 MCG/0.5 ML SYRINGE IM ONE (03:10)
[2024-10-18] MEDS ORDERED: Acetaminophen 325 MG TABLET PO PRN (03:15)
[2024-10-18] MEDS ORDERED: Ondansetron HCl 2 MG / ML 2ML Vial IV PRN (03:15)
[2024-10-18] MEDS ORDERED: NS 1,000 ML IV SCH (03:15)
[2024-10-18] MEDS ORDERED: Albumin (Human) 25gm/100ml 100 ML IV ONE (03:35)
[2024-10-18] MEDS ORDERED: Insulin Glargine-Yfgn 100 Unit/mL 3 ML SYR SC SCH (04:00)
[2024-10-18 04:03] LABS: Influenza A, PCR NEGATIVE (NEGATIVE); Influenza B, PCR NEGATIVE (NEGATIVE); Resp Syncytial Virus, PCR NEGATIVE (NEGATIVE); SARS-Cov-2 (COVID-19) PCR, MMC NEGATIVE (NEGATIVE)
[2024-10-18] MEDS ORDERED: Insulin Human Lispro 100 Units/ML 3ML Syringe SC SCH ×2 (07:30→21:45)
[2024-10-18] MEDS ORDERED: Enoxaparin 40 MG/0.4 ML SYR SC SCH (09:00)
[2024-10-18 09:01] LABS: BASOPHILS ABSOLUTE AUTO 0.03 K/mm3 (0.00-0.23); BASOPHILS PERCENT AUTO 0 % (0-2); EOSINOPHILS ABSOLUTE AUTO 0.05 K/mm3 (0.00-0.68); EOSINOPHILS PERCENT AUTO 0 % (0-6); Hematocrit 31.7 % (37.0-53.0); Hemoglobin 10.2 g/dL (13.5-17.5); IMMATURE GRAN ABSOLUTE AUTO 0.08 K/mm3 (0.00-0.10); IMMATURE GRAN PERCENT AUTO 1 % (0-1); LYMPHOCYTES ABSOLUTE AUTO 1.23 K/mm3 (0.84-5.20); LYMPHOCYTES PERCENT AUTO 10 % (21-46); MONOCYTES ABSOLUTE AUTO 0.82 K/mm3 (0.16-1.47); MONOCYTES PERCENT AUTO 7 % (4-13); Mean Corpuscular HGB 29.7 pg (26.0-34.0); Mean Corpuscular HGB Conc 32.2 g/dL (31.5-36.5); Mean Corpuscular Volume 92 fL (80-100); Mean Platelet Volume 8.7 fL (9.1-12.4); NEUTROPHILS PERCENT AUTO 82 % (41-73); Platelet Count 469 K/mm3 (150-400); RDW Coefficient Variation 13.5 % (11.7-14.2); RDW Standard Deviation 46.1 fL (35.1-46.3); Red Blood Cell Count 3.43 M/mm3 (4.30-5.90); White Blood Cell Count 12.41 K/mm3 (4.00-11.30)
[2024-10-18 09:20] LABS: Albumin, Blood 2.5 g/dL (3.4-5.0); Albumin/Globulin Ratio 0.6 (0.8-1.8); Bilirubin, Total 0.8 mg/dL (0.1-1.0); Calcium, Blood 8.7 mg/dL (8.5-10.1); Creatinine, Blood 0.65 mg/dL (0.60-1.20); Globulin, Blood 4.4 g/dL (2.2-4.0); Potassium, Blood 4.6 mmol/L (3.5-5.5); Total Protein, Blood 6.9 g/dL (6.4-8.2)
[2024-10-18 10:07] LABS: BASOPHILS ABSOLUTE AUTO 0.04 K/mm3 (0.00-0.23); BASOPHILS PERCENT AUTO 0 % (0-2); Bun/Creatinine Ratio 17.4 (12.0-20.0); Calcium, Blood 8.8 mg/dL (8.5-10.1); Creatinine, Blood 0.69 mg/dL (0.60-1.20); EOSINOPHILS ABSOLUTE AUTO 0.05 K/mm3 (0.00-0.68); EOSINOPHILS PERCENT AUTO 0 % (0-6); Hematocrit 30.1 % (37.0-53.0); Hemoglobin 9.7 g/dL (13.5-17.5); IMMATURE GRAN ABSOLUTE AUTO 0.06 K/mm3 (0.00-0.10); IMMATURE GRAN PERCENT AUTO 1 % (0-1); LYMPHOCYTES ABSOLUTE AUTO 1.39 K/mm3 (0.84-5.20); LYMPHOCYTES PERCENT AUTO 11 % (21-46); MONOCYTES ABSOLUTE AUTO 0.91 K/mm3 (0.16-1.47); MONOCYTES PERCENT AUTO 7 % (4-13); Mean Corpuscular HGB 29.5 pg (26.0-34.0); Mean Corpuscular HGB Conc 32.2 g/dL (31.5-36.5); Mean Corpuscular Volume 92 fL (80-100); Mean Platelet Volume 9.3 fL (9.1-12.4); NEUTROPHILS ABSOLUTE AUTO 10.43 K/mm3 (1.96-9.15); NEUTROPHILS PERCENT AUTO 81 % (41-73); Platelet Count 472 K/mm3 (150-400); Potassium, Blood 4.7 mmol/L (3.5-5.5); RDW Coefficient Variation 13.6 % (11.7-14.2); RDW Standard Deviation 46.4 fL (35.1-46.3); Red Blood Cell Count 3.29 M/mm3 (4.30-5.90); White Blood Cell Count 12.88 K/mm3 (4.00-11.30)
[2024-10-18] MEDS ORDERED: Ipratropium/Albuterol SulF 2.5-0.5MG/3 ML Amp INH SCH (13:50)
[2024-10-18] MEDS ORDERED: Albuterol 2.5 MG/3 ML VIAL INH PRN (13:50)
[2024-10-18] MEDS ORDERED: Benzonatate 100 MG Cap PO PRN (14:50)
[2024-10-18 17:37] VITALS: BP 142/41
--- NOTE | 2024-10-18 18:43 | NUR ---
SHIFT SUMMARY PT A&OX3-4, VSS, AMB W/ SBA, TOLERATING PO, VOIDING, AND DENIED PAIN. NS INFUSING PER ORDER. PT ARRIVED TO THE FLOOR W/ A COCCYX PRESSURE ULCER, PICTURE TAKEN AND PLACED IN CHART. CALL LIGHT WITHIN REACH AND PT ABLE TO MAKE NEEDS KNOWN.
[2024-10-18 19:55] VITALS: BP 127/56
[2024-10-18] MEDS ORDERED: Gabapentin 100 MG Cap PO ONE (21:40)
[2024-10-18] MEDS ORDERED: Guaifenesin/Dextromethorphan Syrup 5 ML UDC PO PRN (21:40)
[2024-10-19 01:51] VITALS: BP 123/66
[2024-10-19 05:33] LABS: BASOPHILS ABSOLUTE AUTO 0.06 K/mm3 (0.00-0.23); BASOPHILS PERCENT AUTO 1 % (0-2); EOSINOPHILS ABSOLUTE AUTO 0.05 K/mm3 (0.00-0.68); EOSINOPHILS PERCENT AUTO 0 % (0-6); Hematocrit 35.6 % (37.0-53.0); Hemoglobin 11.3 g/dL (13.5-17.5); IMMATURE GRAN ABSOLUTE AUTO 0.08 K/mm3 (0.00-0.10); IMMATURE GRAN PERCENT AUTO 1 % (0-1); LYMPHOCYTES PERCENT AUTO 10 % (21-46); MONOCYTES ABSOLUTE AUTO 0.89 K/mm3 (0.16-1.47); MONOCYTES PERCENT AUTO 7 % (4-13); Mean Corpuscular HGB 28.9 pg (26.0-34.0); Mean Corpuscular HGB Conc 31.7 g/dL (31.5-36.5); Mean Corpuscular Volume 91 fL (80-100); Mean Platelet Volume 8.9 fL (9.1-12.4); NEUTROPHILS ABSOLUTE AUTO 10.83 K/mm3 (1.96-9.15); NEUTROPHILS PERCENT AUTO 82 % (41-73); Platelet Count 508 K/mm3 (150-400); RDW Coefficient Variation 13.6 % (11.7-14.2); RDW Standard Deviation 45.9 fL (35.1-46.3); Red Blood Cell Count 3.91 M/mm3 (4.30-5.90); White Blood Cell Count 13.21 K/mm3 (4.00-11.30)
[2024-10-19] MEDS ORDERED: CefTRIAXone Sodium 1,000 MG in NS 100 ML IV SCH (06:00)
[2024-10-19 06:05] LABS: Bun/Creatinine Ratio 18.6 (12.0-20.0); Creatinine, Blood 0.65 mg/dL (0.60-1.20); Potassium, Blood 4.3 mmol/L (3.5-5.5)
[2024-10-19] MEDS ORDERED: NS 250 ML IV PRN (06:25)
[2024-10-19 07:22] VITALS: BP 129/67
[2024-10-19] MEDS ORDERED: Atorvastatin 10 MG Tab PO SCH (09:00)
[2024-10-19] MEDS ORDERED: Finasteride 5 MG Tab PO SCH (09:00)
[2024-10-19] MEDS ORDERED: Tamsulosin HCl 0.4 MG Cap PO SCH (09:00)
[2024-10-19] MEDS ORDERED: Alogliptin Benzoate 6.25 MG TABLET PO SCH (09:00)
[2024-10-19] MEDS ORDERED: Insulin Glargine-Yfgn 100 Unit/mL 3 ML SYR SC SCH ×2 (09:00)
[2024-10-19] MEDS ORDERED: Chlorphiramine/Hydrod Polistir 5 ML UDC PO PRN (10:55)
--- NOTE | 2024-10-19 12:56 | NUR ---
THIS RN CALLED TO NOTIFY OF PT'S BLOOD GLUCOSE. PROVIDER TO UPDATE SCALE IN EMAR AND THIS RN TO ADMINISTER ACCORDING TO NEW SCALE.
[2024-10-19] MEDS ORDERED: Insulin Regular 100 UNIT/ML 10ML Vial SC ONE (13:23)
[2024-10-19] MEDS ORDERED: ACET500 PO (14:50)
[2024-10-19] MEDS ORDERED: ALBU90OI INH (14:50)
[2024-10-19] MEDS ORDERED: ALLO100 PO (14:51)
[2024-10-19] MEDS ORDERED: GABA300 PO (14:55)
[2024-10-19] MEDS ORDERED: FURO20 PO (14:55)
[2024-10-19] MEDS ORDERED: KETOROLAC TROMET5 ML (14:56)
[2024-10-19] MEDS ORDERED: GUAI600T33 PO (14:56)
[2024-10-19] MEDS ORDERED: LIDO700A20 TOP (14:57)
[2024-10-19] MEDS ORDERED: MELA3 PO (14:57)
[2024-10-19] MEDS ORDERED: ALLERCLEAR10 MG PO (14:57)
[2024-10-19] MEDS ORDERED: DULERA 100 MCG/13 GM INH (14:58)
[2024-10-19] MEDS ORDERED: SYSTANE GEL10 GM (14:59)
[2024-10-19] MEDS ORDERED: OMEP20ER (15:00)
[2024-10-19] MEDS ORDERED: OMEP20ER PO (15:00)
[2024-10-19] MEDS ORDERED: OCUFLOX511 (15:00)
[2024-10-19] MEDS ORDERED: GENTEAL TEARS3.5 GM (15:00)
[2024-10-19] MEDS ORDERED: POTA10T PO (15:00)
[2024-10-19] MEDS ORDERED: SITA100T2 PO (15:01)
[2024-10-19] MEDS ORDERED: SERT100 PO (15:01)
[2024-10-19] MEDS ORDERED: PREDNISOLO15 MG/5 ML (15:01)
[2024-10-19] MEDS ORDERED: TIOT18 INH (15:01)
[2024-10-19] MEDS ORDERED: Sanctura20 MG PO (15:02)
[2024-10-19 15:33] VITALS: BP 121/68
[2024-10-19] MEDS ORDERED: Insulin Regular 100 UNIT/ML 10ML Vial SC SCH (16:30)
--- NOTE | 2024-10-19 16:55 | NUR ---
TELE NOTIFIED THIS RN AT 1654 THAT PT HAD RUN OF SVT AT 1540. PT ASYMPTOMATIC DURING TIME OF EVENT. THIS RN CALLED AND WAS NOTIFIED OF EVENT. NO NEW ORDERS AT THIS TIME.
[2024-10-19] MEDS ORDERED: MetFORMIN HCl 500 mg PO SCH (17:00)
[2024-10-19] MEDS ORDERED: Mometasone/Formoterol MDI 100/5 mcg 13 GM INH SCH (17:20)
[2024-10-19] MEDS ORDERED: GlipiZIDE 10 MG Tab PO SCH (17:30)
--- NOTE | 2024-10-19 18:02 | NUR ---
SHIFT SUMMARY PT A&OX3-4, VSS, AMB W/ SBA, TOLERATING PO, VOIDING, AND DENIED PAIN. NOTIFIED OF COCCYX WOUND AND WOUND CARE ORDER RECEIVED AND IN EMAR. MED LIST UPDATED. PT HAD RUN OF SVT, BUT WAS AYMPTOMATIC. MD AWARE. SEE PREVIOUS NOTE. NO OTHER ACUTE CHANGES. CALL LIGHT WITHIN REACH AND PT ABLE TO MAKE NEEDS KNOWN.
[2024-10-19 19:36] VITALS: BP 136/71
[2024-10-19] MEDS ORDERED: Melatonin 3 MG Tab PO SCH (21:00)
[2024-10-19] MEDS ORDERED: Gabapentin 300 MG Cap PO SCH (21:00)
[2024-10-20 01:58] VITALS: BP 119/62
--- NOTE | 2024-10-20 05:45 | NUR ---
A&O WITH FORGETFULNESS, VSS, DENIED PAIN, CONTIUNED NON PRODUCTIVE COUGH, MEDICATED PER MAR FOR COUGH, SLEPT T/O THE NIGHT WAKING EASILY FOR CARES, SLEEPING AT THIS TIME, CALL LIGHT IN REACH, WILL CONT TO MONITOR UNTIL REPORT GIVEN TO ONCOMING NURSE.
[2024-10-20 06:00] LABS: BASOPHILS ABSOLUTE AUTO 0.04 K/mm3 (0.00-0.23); BASOPHILS PERCENT AUTO 0 % (0-2); EOSINOPHILS ABSOLUTE AUTO 0.13 K/mm3 (0.00-0.68); EOSINOPHILS PERCENT AUTO 1 % (0-6); Hematocrit 31.2 % (37.0-53.0); Hemoglobin 10.1 g/dL (13.5-17.5); IMMATURE GRAN ABSOLUTE AUTO 0.05 K/mm3 (0.00-0.10); IMMATURE GRAN PERCENT AUTO 1 % (0-1); LYMPHOCYTES ABSOLUTE AUTO 1.58 K/mm3 (0.84-5.20); LYMPHOCYTES PERCENT AUTO 17 % (21-46); MONOCYTES ABSOLUTE AUTO 0.69 K/mm3 (0.16-1.47); MONOCYTES PERCENT AUTO 8 % (4-13); Mean Corpuscular HGB 29.3 pg (26.0-34.0); Mean Corpuscular HGB Conc 32.4 g/dL (31.5-36.5); Mean Corpuscular Volume 90 fL (80-100); Mean Platelet Volume 8.8 fL (9.1-12.4); NEUTROPHILS ABSOLUTE AUTO 6.72 K/mm3 (1.96-9.15); NEUTROPHILS PERCENT AUTO 73 % (41-73); Platelet Count 421 K/mm3 (150-400); RDW Coefficient Variation 13.5 % (11.7-14.2); Red Blood Cell Count 3.45 M/mm3 (4.30-5.90); White Blood Cell Count 9.21 K/mm3 (4.00-11.30)
[2024-10-20] MEDS ORDERED: Omeprazole 20 MG CapCR PO SCH (06:00)
[2024-10-20 06:33] LABS: Bun/Creatinine Ratio 17.5 (12.0-20.0); Calcium, Blood 8.8 mg/dL (8.5-10.1); Creatinine, Blood 0.68 mg/dL (0.60-1.20); Potassium, Blood 3.9 mmol/L (3.5-5.5)
[2024-10-20 07:12] VITALS: BP 118/63
[2024-10-20] MEDS ORDERED: Trimethoprim/Sulfamethoxazole DS Tab PO SCH (08:00)
[2024-10-20] MEDS ORDERED: Aspirin 81 MG TabEC PO SCH (09:00)
[2024-10-20] MEDS ORDERED: Loratadine 10 MG Tab PO SCH (09:00)
[2024-10-20] MEDS ORDERED: Sertraline HCl 100 MG Tab PO SCH (09:00)
[2024-10-20] MEDS ORDERED: Lidocaine 4% 1 Patch TOP SCH (09:00)
[2024-10-20] MEDS ORDERED: Allopurinol 100 MG Tab PO SCH (09:00)
[2024-10-20] MEDS ORDERED: DiphenhydrAMINE HCL/Zinc Acet Cream TOP PRN (11:25)
[2024-10-20 15:17] VITALS: BP 114/70
[2024-10-20] MEDS ORDERED: Trospium Chloride 20 MG Tab PO SCH (17:30)
[2024-10-20 21:03] VITALS: BP 113/58
[2024-10-21 03:22] VITALS: BP 122/69
--- NOTE | 2024-10-21 04:25 | NUR ---
SHIFT SUMMARY 78 YR M ADMITTED ON 10/18/24. FULL CODE. NO ACUTE CHANGES THIS SHIFT. PT IS PLEASANT AND COOPERATIVE WITH CARE. CALLS APPROPRIATELY FOR ASSISTANCE TO BATHROOM. NO C/O PAIN OR DISCOMFORT. HE HAS SLEPT FOR MOST OF THIS SHIFT. NO ADVERSE EVENTS REPORTED FROM SOFTWARE LICENSING SPECIALIST. WILL CONTINUE TO MONITOR. BED IN LOW POSITION AND CALL LIGHT IN REACH.
[2024-10-21 06:27] LABS: BASOPHILS ABSOLUTE AUTO 0.03 K/mm3 (0.00-0.23); BASOPHILS PERCENT AUTO 0 % (0-2); EOSINOPHILS ABSOLUTE AUTO 0.14 K/mm3 (0.00-0.68); EOSINOPHILS PERCENT AUTO 2 % (0-6); Hematocrit 31.9 % (37.0-53.0); Hemoglobin 10.3 g/dL (13.5-17.5); IMMATURE GRAN ABSOLUTE AUTO 0.05 K/mm3 (0.00-0.10); IMMATURE GRAN PERCENT AUTO 1 % (0-1); LYMPHOCYTES ABSOLUTE AUTO 1.14 K/mm3 (0.84-5.20); LYMPHOCYTES PERCENT AUTO 13 % (21-46); MONOCYTES ABSOLUTE AUTO 0.66 K/mm3 (0.16-1.47); MONOCYTES PERCENT AUTO 8 % (4-13); Mean Corpuscular HGB 29.4 pg (26.0-34.0); Mean Corpuscular HGB Conc 32.3 g/dL (31.5-36.5); Mean Corpuscular Volume 91 fL (80-100); Mean Platelet Volume 8.9 fL (9.1-12.4); NEUTROPHILS PERCENT AUTO 77 % (41-73); Platelet Count 410 K/mm3 (150-400); RDW Coefficient Variation 13.7 % (11.7-14.2); RDW Standard Deviation 45.8 fL (35.1-46.3); White Blood Cell Count 8.82 K/mm3 (4.00-11.30)
[2024-10-21 06:49] LABS: Bun/Creatinine Ratio 16.4 (12.0-20.0); Calcium, Blood 8.8 mg/dL (8.5-10.1); Creatinine, Blood 0.73 mg/dL (0.60-1.20); Potassium, Blood 4.3 mmol/L (3.5-5.5)
--- NOTE | 2024-10-21 09:00 | NUR ---
pt laying in bed on his side, a/ox3, mostly cooperative with care, follows commands, lungs are clear in upper cruz, dim in bases, resp even and unlaborded, no cough noted, on r/a, does have a harsh cough, hrr, tele in place, running sr per monitor, see strip, no edema noted, ppp+2, cap refill< 3 sec, vs stable, afebrile, piv to lac site is clear and patent, btx4, abd flat soft nontender, voids without diff, skin has sore to coccyx, maew, weak, refusing therapy today, william, call light in reach.
[2024-10-21 09:04] VITALS: BP 117/58
--- NOTE | 2024-10-21 12:48 | NUR ---
ambulated pt to bathroom, gait pretty steady, used walker. call light in reach.
[2024-10-21 15:58] VITALS: BP 90/58
[2024-10-21 15:59] VITALS: BP 114/58
--- NOTE | 2024-10-21 18:08 | NUR ---
pt sitting on side of bed to eat dinner, he ambulated with walker to the bathroom several times today, has a harsh cough, call light in reach.
[2024-10-21 21:06] VITALS: BP 110/60
--- NOTE | 2024-10-22 03:31 | NUR ---
SHIFT SUMMARY 78 YR M ADMITTED ON 10/18/24. FULL CODE. NO ACUTE CHANGES THIS SHIFT. PT HAS SLEPT FOR MOST OF THIS SHIFT. NO C/O PAIN OR DISCOMFORT. NO ADVERSE EVENTS REPORTED FROM JOURNEYMAN PIPEFITTER. PT IS ABLE TO MAKE NEEDS KNOW AND CALLS APPROPRIATELY. WILL CONTINUE TO MONITOR. BED IN LOW POSITION AND CALL LIGHT IN REACH.
[2024-10-22 05:06] VITALS: BP 108/63
[2024-10-22 07:51] VITALS: BP 113/97
[2024-10-22] MEDS ORDERED: GENTEAL TEARS3.5 GM BOTHEYES (12:12)
[2024-10-22] MEDS ORDERED: Tessalon200 MG PO (12:13)
[2024-10-22] MEDS ORDERED: FINA5 PO (12:13)
[2024-10-22] MEDS ORDERED: SULTRIDS PO (12:16)
[2024-10-22] MEDS ORDERED: HYDROCODONE-CHLORPHE PO (12:16)
[2024-10-22] MEDS ORDERED: TAMS.4ER PO (12:16)
[2024-10-22] MEDS ORDERED: VISBIOME 112.51 EACH PO (12:17)
--- NOTE | 2024-10-22 13:49 | NUR ---
DISCHARGED AT 1345 AOX3 WITH CONFUSIONS SEEMS TO BE AT HIS BASELINE. PT AMBULATING A STANDBY ASSIST. PT WAS ABLE TO MAKE NEEDS KNOWN NO DISTRESS NOTED. PT HAD PAPERWORK AND EDUCATIONAL MATERIAL REVIEWED AND SENT WITH HIM. PT HAD WHEEL CHAIR VAN PICK HIM UP AND WILL TAKE HIM TO [facility] THEN HOME.
== END 2024-10-22 13:43 | disposition home health service (06) | DRG 871 ==
LOC: ER 19:25 → ERHOLD 10-18 02:59 → MEDS 10-18 02:59
PROVIDERS: Emergency Medicine; Internal Medicine; ADMIT Internal Medicine
DX: A41.9 Sepsis, unspecified organism (principal); G93.41 Metabolic encephalopathy; N39.0 Urinary tract infection, site not specified; E87.21 Acute metabolic acidosis; F32.A Depression, unspecified; E86.0 Dehydration; N40.1 Benign prostatic hyperplasia with lower urinary tract symptoms; R53.1 Weakness; R33.8 Other retention of urine; L89.322 Pressure ulcer of left buttock, stage 2; T73.0XXA Starvation, initial encounter; L89.312 Pressure ulcer of right buttock, stage 2; N39.498 Other specified urinary incontinence; E78.5 Hyperlipidemia, unspecified; E11.40 Type 2 diabetes mellitus with diabetic neuropathy, unspecified; Z79.82 Long term (current) use of aspirin; Z79.899 Other long term (current) drug therapy; Z79.84 Long term (current) use of oral hypoglycemic drugs; Z88.0 Allergy status to penicillin
CPT/HCPCS: 0241U; 36415; 51701; 80048; 80053; 80320; 81001; 82803; 82947; 83605; 83735; 83880; 84100; 84443; 84550; 85025; 87077; 87086; 87186; 93005; 93010; 94640; 94664; 94760; 96361; 96374; 97110; 97530; 99285-25; A9270; J0696; J1650; J1815; J7030; P9047

== ENCOUNTER 2024-10-28 13:51 | Inpatient (IN) | payer OTHER ==
[~2024-10-28] VITALS: Ht 180.3 cm; Wt 90.7 kg
[~2024-10-28 13:51] MED LIST changes: +ACET500 PO; +ALBU90OI INH; +ALLERCLEAR10 MG PO; +ALLO100 PO; +DULERA 100 MCG/13 GM INH; +FURO20 PO; +GABA300 PO; +GENTEAL TEARS3.5 GM; +GENTEAL TEARS3.5 GM BOTHEYES; +GUAI600T33 PO; +HYDROCODONE-CHLORPHE PO; +KETOROLAC TROMET5 ML; +LIDO700A20 TOP; +MELA3 PO; +OCUFLOX511; +OMEP20ER; +OMEP20ER PO; +POTA10T PO; +PREDNISOLO15 MG/5 ML; +SERT100 PO; +SITA100T2 PO; +SULTRIDS PO; +SYSTANE GEL10 GM; +Sanctura20 MG PO; +TAMS.4ER PO; +TIOT18 INH; +Tessalon200 MG PO; +VISBIOME 112.51 EACH PO
[2024-10-28 14:43] LABS: BASOPHILS ABSOLUTE AUTO 0.02 K/mm3 (0.00-0.23); BASOPHILS PERCENT AUTO 0 % (0-2); EOSINOPHILS PERCENT AUTO 0 % (0-6); Hematocrit 45.2 % (37.0-53.0); Hemoglobin 14.3 g/dL (13.5-17.5); IMMATURE GRAN ABSOLUTE AUTO 0.07 K/mm3 (0.00-0.10); IMMATURE GRAN PERCENT AUTO 1 % (0-1); LYMPHOCYTES ABSOLUTE AUTO 1.49 K/mm3 (0.84-5.20); LYMPHOCYTES PERCENT AUTO 16 % (21-46); MONOCYTES PERCENT AUTO 4 % (4-13); Mean Corpuscular HGB 28.5 pg (26.0-34.0); Mean Corpuscular HGB Conc 31.6 g/dL (31.5-36.5); Mean Corpuscular Volume 90 fL (80-100); Mean Platelet Volume 9.6 fL (9.1-12.4); NEUTROPHILS ABSOLUTE AUTO 7.27 K/mm3 (1.96-9.15); NEUTROPHILS PERCENT AUTO 79 % (41-73); Platelet Count 329 K/mm3 (150-400); RDW Standard Deviation 46.4 fL (35.1-46.3); Red Blood Cell Count 5.01 M/mm3 (4.30-5.90); White Blood Cell Count 9.25 K/mm3 (4.00-11.30)
[2024-10-28 15:30] LABS: Albumin, Blood 2.9 g/dL (3.4-5.0); Albumin/Globulin Ratio 0.5 (0.8-1.8); Bilirubin, Total 0.4 mg/dL (0.1-1.0); Bun/Creatinine Ratio 51.6 (12.0-20.0); Calcium, Blood 9.7 mg/dL (8.5-10.1); Creatinine, Blood 0.85 mg/dL (0.60-1.20); Total Protein, Blood 8.9 g/dL (6.4-8.2)
[2024-10-28 16:27] LABS: Source, Urine Voided
[2024-10-28 16:32] LABS: Appearance, Urine Clear (Clear); Bilirubin, Urine Neg (Neg); Blood, Urine Neg (Neg); Color, Urine Yellow (P-Yellow); Glucose Qualitative, Urine 4+ (Neg); Ketones, Urine 3+ (Neg); Leukocyte Esterase, Urine 1+ (Neg); Nitrite, Urine Neg (Neg); Protein, Urine 2+ (Neg); Specific Gravity, Urine 1.025 (1.003-1.022); Urobilinogen, Urine NORM (Normal)
[2024-10-28 16:43] LABS: Bacteria Mod /hpf; Red Blood Cells, Urine 0-2 /hpf (0-2); Squamous Epithelial Cells Rare /hpf (Few)
[2024-10-28 16:46] LABS: Bun/Creatinine Ratio 44.8 (12.0-20.0); Calcium, Blood 9.7 mg/dL (8.5-10.1); Creatinine, Blood 0.98 mg/dL (0.60-1.20); Potassium, Blood 4.9 mmol/L (3.5-5.5)
[2024-10-28] MEDS ORDERED: NS 1,000 ML IV SCH ×3 (17:00→19:00)
[2024-10-28] MEDS ORDERED: Cefpodoxime Proxetil 200 MG Tab PO ONE (18:10)
[2024-10-28] MEDS ORDERED: CefTRIAXone Sodium 2,000 MG in NS 100 ML IV ONE (18:15)
[2024-10-28] MEDS ORDERED: Azithromycin 500 MG in NS 250 ML IV ONE (18:15)
[2024-10-28] MEDS ORDERED: Ondansetron HCl 2 MG / ML 2ML Vial IV PRN (18:55)
[2024-10-28] MEDS ORDERED: Ipratropium/Albuterol SulF 2.5-0.5MG/3 ML Amp INH PRN (18:55)
[2024-10-28] MEDS ORDERED: Enoxaparin 40 MG/0.4 ML SYR SC SCH (19:00)
[2024-10-28] MEDS ORDERED: FLU VACC TS2024-25(6MOS UP)/PF 45 MCG/0.5 ML SYRINGE IM ONE (19:00)
[2024-10-28] MEDS ORDERED: Insulin Glargine-Yfgn 100 Unit/mL 3 ML SYR SC SCH (20:00)
[2024-10-28 20:30] LABS: Influenza B, PCR NEGATIVE (NEGATIVE); Resp Syncytial Virus, PCR NEGATIVE (NEGATIVE); SARS-Cov-2 (COVID-19) PCR, MMC NEGATIVE (NEGATIVE)
--- NOTE | 2024-10-28 21:00 | NUR ---
ADMISSION NOTE PT ARRIVED TO RM 354 AT 2100 FROM ER. RECIEVED REPORT FROM JYOTI IN ER. PT AOX4, WEAK X4 EXTREMITIES. HE IS ALSO INCONTINENT X2, WITH PURWIK ON. EXPLAINED CALL LIGHT TO PT, AND PLACED BED LOCKED IN LOWEST POSITION. THIS RN TO ASSUME CARE.
[2024-10-28 21:21] LABS: Influenza A, PCR POSITIVE (NEGATIVE)
[2024-10-28 22:15] VITALS: BP 106/76
[2024-10-29] MEDS ORDERED: Oseltamivir Phosphate 75 MG Cap PO SCH
[2024-10-29] MEDS ORDERED: Mometasone/Formoterol MDI 200/5 mcg 13 GM INH SCH (00:25)
--- NOTE | 2024-10-29 00:52 | NUR ---
BEDSIDE SWALLOW EVAL PT AOX4, AND ABLE TO FOLLOW COMMANDS. 10ML OF WATER GIVEN TO PT. PT TOLERATED WELL. PT WAS THEN GIVEN 60 ML OF WATER TO DRINK WITHOUT PAUSING. PT TOLERATED WELL.
--- NOTE | 2024-10-29 01:15 | NUR ---
NURSE NOTE DR. JEWELL WAS ON UNIT VISITING ANOTHER PT. RN ASKED MD FOR NEW DIET ORDERS, BECAUSE PT PASSED SWALLOW EVAL. RECIEVED ORDERS FOR NEW DIET.
--- NOTE | 2024-10-29 01:54 | NUR ---
NURSE NOTE CALLED HOSPITALIST AT 0154 FOR WOUND CARE CONSULT ORDERS. ORDERS RECIEVED.
[2024-10-29 04:39] VITALS: BP 136/90
[2024-10-29 05:09] LABS: BASOPHILS ABSOLUTE AUTO 0.01 K/mm3 (0.00-0.23); BASOPHILS PERCENT AUTO 0 % (0-2); EOSINOPHILS ABSOLUTE AUTO 0.01 K/mm3 (0.00-0.68); EOSINOPHILS PERCENT AUTO 0 % (0-6); Hematocrit 40.6 % (37.0-53.0); Hemoglobin 12.7 g/dL (13.5-17.5); IMMATURE GRAN ABSOLUTE AUTO 0.04 K/mm3 (0.00-0.10); IMMATURE GRAN PERCENT AUTO 1 % (0-1); LYMPHOCYTES ABSOLUTE AUTO 1.88 K/mm3 (0.84-5.20); LYMPHOCYTES PERCENT AUTO 22 % (21-46); MONOCYTES ABSOLUTE AUTO 0.44 K/mm3 (0.16-1.47); MONOCYTES PERCENT AUTO 5 % (4-13); Mean Corpuscular HGB 28.7 pg (26.0-34.0); Mean Corpuscular HGB Conc 31.3 g/dL (31.5-36.5); Mean Corpuscular Volume 92 fL (80-100); Mean Platelet Volume 8.9 fL (9.1-12.4); NEUTROPHILS ABSOLUTE AUTO 6.31 K/mm3 (1.96-9.15); NEUTROPHILS PERCENT AUTO 73 % (41-73); Platelet Count 373 K/mm3 (150-400); Red Blood Cell Count 4.42 M/mm3 (4.30-5.90); White Blood Cell Count 8.69 K/mm3 (4.00-11.30)
[2024-10-29 05:42] LABS: Albumin, Blood 2.6 g/dL (3.4-5.0); Albumin/Globulin Ratio 0.5 (0.8-1.8); Bilirubin, Total 0.3 mg/dL (0.1-1.0); Bun/Creatinine Ratio 47.2 (12.0-20.0); Calcium, Blood 9.4 mg/dL (8.5-10.1); Creatinine, Blood 0.72 mg/dL (0.60-1.20); Globulin, Blood 5.2 g/dL (2.2-4.0); Potassium, Blood 4.7 mmol/L (3.5-5.5); Total Protein, Blood 7.8 g/dL (6.4-8.2)
--- NOTE | 2024-10-29 06:17 | NUR ---
SHIFT SUMMARY PT ARRIVED ON UNIT AT 2100. PT HAS BEEN WITHDRAWN AND DOES NOT CONVERSE OFTEN W/ RN. PT WAS AOX4 OVER COURSE OF SHIFT. HE HAS BEEN ON BEDREST, BUT HE HAS BEEN ABLE TO TURN W/ ASSISTANCE. PT HAS BEEN RELATIVELY COOPERATIVE. HE ATTEMPTED TO REFUSE REPEAT LACTIC DRAW. HOWEVER, RN WAS ABLE TO CONVINCE PT TO GET LAB DRAW. OTHERWISE, PT HAD NO COMPLAINTS OVERNIGHT. PT BED LOCKED IN LOWEST POSITION. PT IN DROPLET PRECAUTIONS FOR FLU. NO ACUTE EVENTS OVERNIGHT.
[2024-10-29 07:18] VITALS: BP 133/70
[2024-10-29] MEDS ORDERED: Insulin Human Lispro 100 Units/ML 3ML Syringe SC SCH ×2 (07:30→12:00)
[2024-10-29 15:58] VITALS: BP 114/60
[2024-10-29] MEDS ORDERED: Benzonatate 100 MG Cap PO PRN (16:50)
[2024-10-29] MEDS ORDERED: Acetaminophen 500 MG Tab PO PRN (17:10)
[2024-10-29] MEDS ORDERED: Artificial Tear Opth Oint 3.5 GM BOTHEYES PRN (17:15)
[2024-10-29] MEDS ORDERED: Tiotropium Bromide 2.5 MCG/ACT MIST INHAL (10 ACT/4 GM) INH SCH (17:20)
--- NOTE | 2024-10-29 17:54 | NUR ---
SHIFT SUMMARY PT AOX3, SLOW TO RESPOND. WITHDRAWN AND FLAT. BR AT THIS TIME, PT STATES HE HAS NOT GOTTEN OUT OF BED FOR QUITE SOME TIME. DENIES ANY PAIN, REQUESTED COUGH MEDICINE. ORDER OBTAINED AND ADMINISTERED PER THE EMAR. PURWICK IN PLACE AND DRAINING, NEW PURWICK APPLIED THIS SHIFT. BED BATH DONE. REPOSITIONED THROUGHOUT THE SHIFT. PT DOES CALL AND MAKES HIS NEEDED KNOWN. REDNESS IN THE GROIN, MEDICATION ORDERED PER THE EMAR. NO EVENTS PER TELE. CALL LIGHT WITHIN REACH, BED LOCKED AND IN THE LOWEST POSITION. WILL REPORT TO ONCOMING NURSE.
[2024-10-29] MEDS ORDERED: CefTRIAXone Sodium 1,000 MG in NS 100 ML IV SCH (20:00)
[2024-10-29 20:20] VITALS: BP 122/59
[2024-10-29] MEDS ORDERED: Melatonin 3 MG Tab PO SCH (21:00)
[2024-10-29] MEDS ORDERED: Lactobacil 2-S.Thermo-Bifido 1 1 Cap PO SCH (21:00)
[2024-10-29] MEDS ORDERED: Azithromycin 500 MG in NS 250 ML IV SCH (21:00)
[2024-10-29] MEDS ORDERED: Miconazole Nitrate 2% 85 GM PWD TOP SCH (21:00)
[2024-10-29] MEDS ORDERED: GuaiFENesin 600 MG TabCR PO SCH (21:00)
[2024-10-29] MEDS ORDERED: Gabapentin 300 MG Cap PO SCH (21:00)
[2024-10-29] MEDS ORDERED: NS 250 ML IV PRN (22:20)
[2024-10-30 02:55] VITALS: BP 123/70
--- NOTE | 2024-10-30 05:04 | NUR ---
Shift Summary No acute changes. Purewick was leaking and was removed, attends changed PRN. Pt took meds whole in applesauce, no s/s of aspiration. He slept well t/o most of the night. He is AOx3, slow to respond and lethargic. He remains very weak and on bedrest.
[2024-10-30 05:15] LABS: Hematocrit 33.2 % (37.0-53.0); Hemoglobin 10.6 g/dL (13.5-17.5); Mean Corpuscular HGB 28.3 pg (26.0-34.0); Mean Corpuscular HGB Conc 31.9 g/dL (31.5-36.5); Mean Corpuscular Volume 89 fL (80-100); Mean Platelet Volume 8.6 fL (9.1-12.4); Platelet Count 291 K/mm3 (150-400); RDW Coefficient Variation 13.8 % (11.7-14.2); Red Blood Cell Count 3.74 M/mm3 (4.30-5.90); White Blood Cell Count 7.05 K/mm3 (4.00-11.30)
[2024-10-30] MEDS ORDERED: Omeprazole 20 MG CapCR PO SCH (06:00)
[2024-10-30 06:02] LABS: Calcium, Blood 8.6 mg/dL (8.5-10.1); Creatinine, Blood 0.64 mg/dL (0.60-1.20); Potassium, Blood 3.8 mmol/L (3.5-5.5)
[2024-10-30 07:44] VITALS: BP 128/71
[2024-10-30] MEDS ORDERED: Allopurinol 100 MG Tab PO SCH (09:00)
[2024-10-30] MEDS ORDERED: Finasteride 5 MG Tab PO SCH (09:00)
[2024-10-30] MEDS ORDERED: Lidocaine 4% 1 Patch TOP SCH (09:00)
[2024-10-30] MEDS ORDERED: Atorvastatin 10 MG Tab PO SCH (09:00)
[2024-10-30] MEDS ORDERED: Aspirin 81 MG TabEC PO SCH (09:00)
[2024-10-30] MEDS ORDERED: Sertraline HCl 100 MG Tab PO SCH (09:00)
[2024-10-30] MEDS ORDERED: Tamsulosin HCl 0.4 MG Cap PO SCH (09:00)
[2024-10-30] MEDS ORDERED: Loratadine 10 MG Tab PO SCH (09:00)
[2024-10-30 12:39] LABS: Albumin, Blood 2.1 g/dL (3.4-5.0); Albumin/Globulin Ratio 0.5 (0.8-1.8); Bilirubin, Total 0.3 mg/dL (0.1-1.0); Globulin, Blood 4.3 g/dL (2.2-4.0); Total Protein, Blood 6.4 g/dL (6.4-8.2)
[2024-10-30 12:40] LABS: Alanine Aminotransfer (ALT/SGP 14 U/L (12-78); Alk Phos 60 U/L (50-136); Aspartate Aminotrans (AST/SGOT 15 U/L (12-37); Bilirubin, Direct <0.1 mg/dL (0.0-0.3); Bilirubin, Indirect Unable to Calculate mg/dL (0.1-0.7)
[2024-10-30 15:50] VITALS: BP 124/71
--- NOTE | 2024-10-30 16:39 | NUR ---
SHIFT SUMMARY PATIENT DENIES PAIN, NAUSEA AND SHORTNESS OF BREATH. HIPS AND HEELS FLOATED WHEN IN BED. MEPILEX TO BILATERAL BUTTOCK WOUNDS C/D/I. OCCASIONAL NON PRODUCTIVE COUGH. RESPIRATIONS EVEN AND UNLABORED ON ROOM AIR. POOR APPETITE. WORKED WITH PT AND OT. UP IN CHAIR FOR TWO HOURS BUT VERY FATIGUED. SNF RECOMMENDATION. PATIENT ANSWERS ORIENTATION QUESTIONS CORRECTLY AND MAKES NEEDS KNOW. NULATO AND SLOW TO RESPOND. COOPERATIVE WITH CARE.
[2024-10-30 19:52] VITALS: BP 109/56
[2024-10-30 23:55] VITALS: BP 115/62
[2024-10-31 04:08] VITALS: BP 123/61
--- NOTE | 2024-10-31 04:49 | NUR ---
SHIFT SUMMARY; PATIENT SLEPT IN LONG INTERVALS. REMAINED ON BR FOR THE NIGHT.GIVEN PRN TESSLON PERLS & TYLENOL. TELE SR @ 80 WITH A BBB. REMAINS IN ARESOL & CONTACT ISOLATION. 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
[2024-10-31 06:59] LABS: Bun/Creatinine Ratio 23.5 (12.0-20.0); Calcium, Blood 8.6 mg/dL (8.5-10.1); Creatinine, Blood 0.55 mg/dL (0.60-1.20)
[2024-10-31 08:08] VITALS: BP 113/67
[2024-10-31 12:11] VITALS: BP 101/66
[2024-10-31 16:33] VITALS: BP 141/77
--- NOTE | 2024-10-31 18:14 | NUR ---
NO CHANGES, SLOW TO RESPOND, COOPERATIVE TO CARE, WAITING FOR SNF APPROVAL, WORKED WITH PT/OT, CLEARLY MAKES NEEDS KNOWN, INCONTINENT, CALL LIGHT WITH IN REACH, WILL RELAY TO PM RN
[2024-10-31 19:28] VITALS: BP 119/64
[2024-11-01 00:17] VITALS: BP 111/61
[2024-11-01 04:19] VITALS: BP 116/68
--- NOTE | 2024-11-01 04:40 | NUR ---
SHIFT SUMMARY PT ALERT ORIENTED X 4 BUTR VERY SLOW TO RESPOND WHEN ASKED QUESTION. INC OF B&B WEARS BRIEFS. FS DONE AC AND HS WAS 244. C/O GENERALIZED BODY PAIN MEDICATED WITH TYLENOL WITH GOOD RELIEF. REMAINS ON TELEMETRY AT [facility] WITH PACS AT 77. REMAINS ON ZITHROMAX AND ROCEPHIN ORDERED FOR PNEUMONIA. HE HAS A NONPRODUCTIVE COUGH AND WAS MEDICATED WITH TESSALON. REMAINS ON DROPLET ISOLATION. AWAITING PLACEMENT FOR A SNF. VSS ON RA SATTING AT 96% ON RA, HE HAS PRESSURE SORES TO BILATERAL BUTTOCKS DRESSING WAS CHANGED TO THE AREAS. RESTING IN BED AT THIS TIME WITH CALL LIGHT IN REACH
[2024-11-01 05:28] LABS: Hematocrit 34.9 % (37.0-53.0); Hemoglobin 11.2 g/dL (13.5-17.5); Mean Corpuscular HGB 29.2 pg (26.0-34.0); Mean Corpuscular HGB Conc 32.1 g/dL (31.5-36.5); Mean Corpuscular Volume 91 fL (80-100); Mean Platelet Volume 10.3 fL (9.1-12.4); Platelet Count 251 K/mm3 (150-400); RDW Coefficient Variation 14.1 % (11.7-14.2); RDW Standard Deviation 46.9 fL (35.1-46.3); Red Blood Cell Count 3.84 M/mm3 (4.30-5.90); White Blood Cell Count 5.96 K/mm3 (4.00-11.30)
[2024-11-01 08:10] VITALS: BP 121/68
[2024-11-01 08:33] LABS: Bun/Creatinine Ratio 14.7 (12.0-20.0); Calcium, Blood 8.8 mg/dL (8.5-10.1); Creatinine, Blood 0.55 mg/dL (0.60-1.20); Potassium, Blood 3.9 mmol/L (3.5-5.5)
[2024-11-01] MEDS ORDERED: Insulin Glargine-Yfgn 100 Unit/mL 3 ML SYR SC SCH (09:00)
[2024-11-01 16:54] VITALS: BP 111/60
--- NOTE | 2024-11-01 17:17 | NUR ---
SHIFT SUMMARY: PATIENT HAS HAD NO CHANGES THIS SHIFT. PATIENT A/OX3, PLEASANT AND COOPERATIVE c CARE. TELE DC'D PER ORDER. PATIENT WORKED c PT/OT TODAY, RECEIVED BEDBATH, SHAVED AND LINEN CHANGED. PATIENT INCONTINENT OF BOWEL/BLADDER, ATTENDS PLACED AND CHANGED PRN, MIPELEX DRESSING CHANGED TO COCCYX. PATIENT SAT UP IN A RECLINER CHAIR FOR ABOUT TWO HRS, TRANSFERRED HIMSELF BACK IN BED WITHOUT CALLING FOR FRUIT GRADING SUPERVISOR AND SET THE ALARM OFF. PATIENT CURRENTLY IN BED, BED ALARM ON FOR SAFETY. CALL LIGHT IN REACH.
[2024-11-01 20:01] VITALS: BP 103/57
[2024-11-02 02:43] VITALS: BP 120/71
--- NOTE | 2024-11-02 03:02 | NUR ---
SHIFT SUMM: PT IS A Y9 YO FULL CODE WHO WAS ADMITTED FOR PNEUMONIA AND INFLUENZA IN DROPLET PREC. PT IS INCONT TO BOWEL AND URINE AND IS IN ATTENDS AND REPOSITIONED AND BRIEF CHECKED Q2. PT HAD A LARGE BM THIS SHIFT AND I PLACED A NEW MEPILEX ON COCCYX WHERE THERE IS A STAGE 2 PRESSURE ULCER. PT HAS A DRY NON PRODUCTIVE COUGH AND IS SUPPOSED TO BE GOING TO [place] ON MONDAY. PT IS COOPERATIVE W/ CARE BUT SLOW TO RESPONSE AND FLAT AFFECT PT IS A&OX4 AND CALLS NEEDED. PT HAS BEEN SLEEPING WELL THIS SHIFT.
[2024-11-02 05:49] LABS: Hematocrit 32.6 % (37.0-53.0); Hemoglobin 10.5 g/dL (13.5-17.5)
[2024-11-02 06:22] LABS: Bun/Creatinine Ratio 16.9 (12.0-20.0); Calcium, Blood 8.5 mg/dL (8.5-10.1); Creatinine, Blood 0.53 mg/dL (0.60-1.20); Magnesium, Blood 1.4 mg/dL (1.6-2.4); Phosphorus, Blood 2.7 mg/dL (2.5-4.9); Potassium, Blood 4.2 mmol/L (3.5-5.5)
[2024-11-02 07:41] VITALS: BP 122/76
[2024-11-02] MEDS ORDERED: Mag Sulfate 1 GM/D5% 100ML 100 ML IV STA (08:39)
[2024-11-02 15:29] VITALS: BP 113/62
[2024-11-02] MEDS ORDERED: Insulin Human Lispro 100 Units/ML 3ML Syringe SC SCH (16:30)
--- NOTE | 2024-11-02 17:49 | NUR ---
SHIFT SUMMARY: PATIENT A/OX3, PLEASANT AND COOPERATIVE c CARE. PATIENT DENIES CP/PRESSURE, SOB, N/V AND DIZZINESS. PATIENT RECEIVED OT DOSE OF IV MAGSULFATE PER ORDER. PATIENT BLOOD SUGAR WAS ELEVATED BEFORE BREAKFAST 228, LUNCH 355 AND DINNER 231. PATIENT SHORT ACTING INSULIN COVERAGE CHANGED TO HIGH SLIDING SCALE PER ORDER. PATIENT RECEIVED LONG ACTING AND SHORT ACTING INSULIN PER EMAR. PATIENT HAS GREAT APPETITE, INCONTINENT OF BOWEL/BLADDER, ATTENDS PLACED AND CHANGED PRN. Q2 TURN, MIPELEX DRESSING CHANGED TO COCCYX. VITAL SIGNS REVIEWED. BED ALARM ON FOR SAFETY. CALL LIGHT IN REACH.
[2024-11-02 20:02] VITALS: BP 112/62
--- NOTE | 2024-11-03 04:09 | NUR ---
SHIFT SUMM: PT HAS BEEN RESTING THIS SHIFT AND NO ACUTE CHANGES. PT IS INCONT TO STOOL/URINE AND DOES NOT USUALLY CALL TO HAVE ATTENDS CHANGED. PT IS SLOW TO RESPOND AND FLAT AFFECT. PT HAS A STAGE 2 PRESSURE WOUND ON COCCYX AND REDNESS IN GROIN. PT DID NOT NEED HS INSULIN COVERAGE THIS SHIFT. PT HAS BEEN RESTING AND WATCHING TV. PT HAS CALL LIGHT IN REACH
[2024-11-03 04:42] VITALS: BP 129/77
[2024-11-03 06:03] LABS: Hematocrit 34.6 % (37.0-53.0)
[2024-11-03 06:20] LABS: Calcium, Blood 9.2 mg/dL (8.5-10.1); Creatinine, Blood 0.63 mg/dL (0.60-1.20); Potassium, Blood 4.3 mmol/L (3.5-5.5)
[2024-11-03 07:50] VITALS: BP 125/63
[2024-11-03 16:04] VITALS: BP 114/60
--- NOTE | 2024-11-03 16:46 | NUR ---
shift summary pt remains on room air during shift, non productive cough. 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 up to chair during shift. transfers well. repositioning during shift. pt helps with reposition.
[2024-11-03 19:31] VITALS: BP 115/92
[2024-11-04 02:44] VITALS: BP 132/68
--- NOTE | 2024-11-04 03:49 | NUR ---
WOOD PROCESSING WORKER SUMMARY: PT ADMITTED FOR INFLUENZA A / PNEUMONIA. DROPLET PRECAUTIONS. FULL CODE. A&O X3, FORGETFUL. BEDREST AT HS. TURN [address] SCH[address]ULE IN PL[address]. VSS. PIV D/C TO L AND R AC. NEW 20G PLACED IN L FA. OCC DRY COUGHT NOTED. SATS MAINTAINED ABOVE 90% ON RA. NO RESPIRATORY DISTRESS NOTED. INCONTINENT OF BLADDER, LINEN BED CHANGE DONE X1. MEPILEX DRESSING CHANGED TO COCCYX THIS SHIFT. PT TO D/C TO [facility] AT [place] IN AM. CALL LIGHT IN REACH. BED IN LOWEST POSITION. CARES CONTINUE ORDERED.
[2024-11-04 07:53] VITALS: BP 114/63
[2024-11-04 09:51] LABS: Hematocrit 36.1 % (37.0-53.0); Hemoglobin 11.1 g/dL (13.5-17.5)
[2024-11-04 10:11] LABS: Calcium, Blood 9.2 mg/dL (8.5-10.1); Creatinine, Blood 0.57 mg/dL (0.60-1.20); Potassium, Blood 4.6 mmol/L (3.5-5.5)
[2024-11-04 11:20] LABS: CORONAVIRUS COVID-19 AG Negative (NEGATIVE)
[2024-11-04] MEDS ORDERED: CEPH500 PO (11:39)
--- NOTE | 2024-11-04 13:02 | NUR ---
DISCHARGE PT AOX3/4, SEMI COOPERATIVE, ABLE TO MAKE NEEDS KNOWN. IV DC'D BY THIS RN. PAPERWORK CARRIED OUT BY TRANSPORTER ALONG WITH PT BELONGINGS. NEW MEDS FAXED TO [place] [facility]. DURING TRANSFERRING TO WHEELCHAIR, PT HAD GAITBELT ON, LET GO OF WALKER, THIS RN SAID "WHOA WHOA, LETS TAKE THIS ONE STEP AT A TIME" PT WAS REACHING FOR CUP OF LIQUID. PT LOOKS AT THIS RN AND YELLS "YOU DIDN'T LET ME TAKE A FUCKING DRINK OF MY WATER". TRANSPORTER TO WITNESS. PT GOT SAFELY TO THE CHAIR WEARING A MASK. REPORT GIVEN TO [facility] OF [place].
== END 2024-11-04 12:51 | DRG 178 ==
LOC: ER 13:51 → MEDS 13:52 → ERHOLD 13:52 → MEDS 20:51
PROVIDERS: Emergency Medicine; Hospitalist; Internal Medicine; ADMIT Internal Medicine
DX: J69.0 Pneumonitis due to inhalation of food and vomit (principal); E87.1 Hypo-osmolality and hyponatremia; E87.20 Acidosis, unspecified; J10.00 Influenza due to other identified influenza virus with unspecified type of pneumonia; E11.40 Type 2 diabetes mellitus with diabetic neuropathy, unspecified; E78.5 Hyperlipidemia, unspecified; F32.A Depression, unspecified; E86.0 Dehydration; E11.65 Type 2 diabetes mellitus with hyperglycemia; E87.6 Hypokalemia; N40.0 Benign prostatic hyperplasia without lower urinary tract symptoms; L89.892 Pressure ulcer of other site, stage 2; K21.9 Gastro-esophageal reflux disease without esophagitis; M10.9 Gout, unspecified; G31.84 Mild cognitive impairment of uncertain or unknown etiology; L30.4 Erythema intertrigo; R53.81 Other malaise; Z87.440 Personal history of urinary (tract) infections; Z79.82 Long term (current) use of aspirin; Z79.84 Long term (current) use of oral hypoglycemic drugs; Z88.0 Allergy status to penicillin; Z79.899 Other long term (current) drug therapy; Z79.891 Long term (current) use of opiate analgesic; Z79.51 Long term (current) use of inhaled steroids; Z98.890 Other specified postprocedural states; Z86.14 Personal history of Methicillin resistant Staphylococcus aureus infection; Z28.21 Immunization not carried out because of patient refusal
CPT/HCPCS: 0241U; 36415; 71045; 80048; 80053; 80076; 81001; 82947; 83605; 83735; 84100; 85014; 85018; 85025; 85027; 87040; 87086; 87426-QW; 92526; 92610; 93005; 93010; 94640; 94664; 94760; 96365; 96372; 96375; 97110; 97116; 97161; 97165; 97530; 97535; 99285-25; A9270; G0378; J0456; J0696; J1650; J1815; J3475; J7030; J7050

== ENCOUNTER 2025-04-28 07:13 | Day surgery (SDC) | payer OTHER ==
[~2025-04-28] VITALS: Ht 172.7 cm; Wt 93.3 kg
[~2025-04-28 07:13] MED LIST changes: +ACET325 PO; +AZIT250 PO; +BASAGLAR K100 UNIT/1 SC; +CEFTRIAXON1 GM/50 M1 IV; +IPRAT-ALBUT 0.5-3 ML INH
[2025-04-28] MEDS ORDERED: CeFAZolin Sodium 2,000 MG VIAL ONE (07:34)
[2025-04-28] MEDS ORDERED: NS 500 ML IV ONE (08:14)
[2025-04-28] MEDS ORDERED: ALFU10 PO (08:20)
[2025-04-28] MEDS ORDERED: ABILIFY MYCITE5 M2 PO (08:21)
[2025-04-28] MEDS ORDERED: DONEPEZIL HCL10 MG PO (08:22)
[2025-04-28] MEDS ORDERED: ATOR10 PO (08:22)
[2025-04-28] MEDS ORDERED: DULO60 PO (08:23)
[2025-04-28] MEDS ORDERED: ARNUITY ELLIPT50 MCG INH (08:26)
[2025-04-28] MEDS ORDERED: MULTIPLE VITAM1 EACH PO (08:28)
[2025-04-28] MEDS ORDERED: OXYC5 PO (08:29)
[2025-04-28] MEDS ORDERED: Midazolam HCl 1MG / ML 2ML Vial ONE (08:35)
[2025-04-28 09:47] VITALS: BP 131/68
== END 2025-04-28 09:42 | disposition home or self-care (01) ==
LOC: ORSCSDS 07:13
PROVIDERS: Orthopaedic Surgery
PROC: 0LN70ZZ Release Right Hand Tendon, Open Approach (ICD-10-PCS; principal; 2025-04-28 08:45)
DX: M65.321 Trigger finger, right index finger (principal); F41.9 Anxiety disorder, unspecified; E11.9 Type 2 diabetes mellitus without complications; G47.33 Obstructive sleep apnea (adult) (pediatric); F43.10 Post-traumatic stress disorder, unspecified; Z87.891 Personal history of nicotine dependence; Z79.82 Long term (current) use of aspirin; Z79.899 Other long term (current) drug therapy
CPT/HCPCS: 82947; J0690; J2250

== ENCOUNTER 2025-05-22 09:01 | Emergency (ER) | payer OTHER ==
[~2025-05-22] VITALS: Ht 180.3 cm; Wt 86.2 kg
[~2025-05-22 09:01] MED LIST changes: +ABILIFY MYCITE5 M2 PO; +ALFU10 PO; +ARNUITY ELLIPT50 MCG INH; +ATOR10 PO; +DONEPEZIL HCL10 MG PO; +DULO60 PO; +MULTIPLE VITAM1 EACH PO; +OXYC5 PO
[2025-05-22] MEDS ORDERED: Ipratropium/Albuterol SulF 2.5-0.5MG/3 ML Amp INH ONE (10:00)
[2025-05-22 10:11] LABS: BASOPHILS ABSOLUTE AUTO 0.02 K/mm3 (0.00-0.23); BASOPHILS PERCENT AUTO 0 % (0-2); EOSINOPHILS ABSOLUTE AUTO 0.11 K/mm3 (0.00-0.68); EOSINOPHILS PERCENT AUTO 1 % (0-6); Hematocrit 37.0 % (37.0-53.0); Hemoglobin 11.9 g/dL (13.5-17.5); IMMATURE GRAN ABSOLUTE AUTO 0.02 K/mm3 (0.00-0.10); IMMATURE GRAN PERCENT AUTO 0 % (0-1); LYMPHOCYTES ABSOLUTE AUTO 1.31 K/mm3 (0.84-5.20); LYMPHOCYTES PERCENT AUTO 17 % (21-46); MONOCYTES ABSOLUTE AUTO 0.37 K/mm3 (0.16-1.47); MONOCYTES PERCENT AUTO 5 % (4-13); Mean Corpuscular HGB Conc 32.2 g/dL (31.5-36.5); Mean Corpuscular Volume 92 fL (80-100); NEUTROPHILS ABSOLUTE AUTO 5.90 K/mm3 (1.96-9.15); NEUTROPHILS PERCENT AUTO 76 % (41-73); NRBC ABSOLUTE 0.00 K/mm3 (0.00-0.02); NRBC Auto 0.0 /100 WBC (0.0-0.2); Platelet Count 232 K/mm3 (150-400); RDW Coefficient Variation 13.2 % (11.7-14.2); RDW Standard Deviation 44.7 fL (35.1-46.3)
[2025-05-22 10:35] LABS: Alanine Aminotransfer (ALT/SGP 16.0 U/L (12-78); Albumin, Blood 3.1 g/dL (3.4-5.0); Albumin/Globulin Ratio 0.8 (0.8-1.8); Anion Gap 8.0 mmol/L (3-11); Aspartate Aminotrans (AST/SGOT 9.0 U/L (12-37); Bilirubin, Total 0.7 mg/dL (0.1-1.0); Blood Urea Nitrogen 18.0 mg/dL (8-24); CO2, Blood 29.0 mmol/L (21-32); Calcium, Blood 8.6 mg/dL (8.5-10.1); Chloride, Blood 104.0 mmol/L (98-108); Creatinine, Blood 0.83 mg/dL (0.60-1.20); Globulin, Blood 4.0 g/dL (2.2-4.0); Glucose, Blood 207.0 mg/dL (70-99); Magnesium, Blood 1.5 mg/dL (1.6-2.4); Potassium, Blood 4.3 mmol/L (3.5-5.5); Sodium, Blood 137.0 mmol/L (136-145); Total Protein, Blood 7.1 g/dL (6.4-8.2)
[2025-05-22 10:44] LABS: Influenza A, PCR NEGATIVE (NEGATIVE); Influenza B, PCR NEGATIVE (NEGATIVE); Resp Syncytial Virus, PCR NEGATIVE (NEGATIVE); SARS-Cov-2 (COVID-19) PCR, MMC NEGATIVE (NEGATIVE)
[2025-05-22] MEDS ORDERED: Magnesium Sulf 2 GM/Water 50ML 50 ML IV ONE (11:15)
[2025-05-22] MEDS ORDERED: BENZ100A PO (11:30)
[2025-05-22 13:15] VITALS: BP 130/64
== END 2025-05-22 13:41 | disposition home or self-care (01) ==
LOC: ER 09:01
PROVIDERS: Student in an Organized Health Care Education/Training Program
DX: R05.9 Cough, unspecified (principal); E83.42 Hypomagnesemia; E78.5 Hyperlipidemia, unspecified; E11.65 Type 2 diabetes mellitus with hyperglycemia; E11.40 Type 2 diabetes mellitus with diabetic neuropathy, unspecified; J44.9 Chronic obstructive pulmonary disease, unspecified; Z87.01 Personal history of pneumonia (recurrent); Z88.0 Allergy status to penicillin; Z79.51 Long term (current) use of inhaled steroids; Z79.4 Long term (current) use of insulin; Z79.899 Other long term (current) drug therapy
CPT/HCPCS: 36415; 71046; 80053; 83735; 85025; 87637; 96365; 99284-25; J3475